=== PATIENT | female | born 1925 | race Caucasian/White ===

== ENCOUNTER 2016-03-25 12:31 | Inpatient (IN) | payer MEDICARE ==
[2016-03-25 13:56] LABS: % BASOPHILS 0.6 % (0.0-2.0); % EOSINOPHILS 0.5 % (0.0-5.0); % LYMPHOCYTES 13.9 % (20.0-50.0); % MONOCYTES 4.2 % (2.0-10.0); % NEUTROPHILS 80.8 % (40.0-80.0); HEMATOCRIT 36.2 % (35.0-45.0); HEMOGLOBIN 12.2 gm/dL (11.7-16.1); MEAN CELL VOLUME 97.1 fl (81-100); MEAN CORPUSCULAR HEMOGLOBIN 32.8 pg (27.0-31.0); MEAN CORPUSCULAR HGB CONC 33.7 pg (28.0-36.0); MEAN PLATELET VOLUME 6.8 fl; NEUTROPHILE ABSOLUTE 6.1 Th/cmm (1.8-8.0); PLATELET COUNT 224 Th/cmm (150-400); RED BLOOD COUNT 3.72 Mil/cmm (3.80-5.20); RED CELL DISTRIBUTION WIDTH 11.9 % (11.5-20.0); WHITE BLOOD COUNT 7.4 Th/cmm (4.8-10.8)
[2016-03-25 14:14] LABS: ALKALINE PHOSPHATASE 68 U/L (34-104); ANION GAP 5.3 (7.0-16.0); BILIRUBIN,TOTAL 0.3 mg/dL (0.3-1.0); BUN - UREA NITROGEN 20 mg/dL (7-25); BUN/CREATININE RATIO 18.2; CALCIUM SERUM 9.6 mg/dL (8.6-10.3); CARBON DIOXIDE 28.5 mEq/L (21.0-31.0); CHLORIDE 107 mEq/L (98-107); CREATININE - SERUM 1.1 mg/dL (0.6-1.2); GLUCOSE 132 mg/dL (70-105); POTASSIUM SERUM 3.8 mEq/L (3.5-5.1); SGOT 17 U/L (13-39); SGPT/ALT 10 U/L (7-52); SODIUM SERUM 137 mEq/L (136-145)
--- NOTE | 2016-03-25 16:04 | Diagnostic Imaging Report ---
CHEST X-RAY: AP view INDICATION: Altered mental status COMPARISON: None FINDINGS: COPD lung changes are seen with no focal consolidation. Right basal pleural thickening is noted. There is evidence of prior median sternotomy. Heart size is borderline prominent. Atherosclerosis is noted. Spinal scoliosis is noted with degenerative changes. IMPRESSION: COPD lung changes with no focal consolidation identified. Evidence of prior median sternotomy. Atherosclerotic vascular disease.
[2016-03-25 16:07] LABS: URINE BILIRUBIN NEGATIVE (NEGATIVE); URINE BLOOD NEGATIVE (NEGATIVE); URINE COLOR YELLOW; URINE GLUCOSE (UA) NEGATIVE (NEGATIVE); URINE KETONE NEGATIVE (NEGATIVE); URINE PROTEIN NEGATIVE (NEGATIVE)
[2016-03-25 16:10] LABS: URINE BACTERIA NONE SEEN /hpf (NONE SEEN); URINE EPITHELIAL CELLS NONE SEEN /lpf (FEW); URINE RBC NONE SEEN /hpf (0-5); URINE WBC NONE SEEN /hpf (0-5)
[2016-03-25] MEDS ORDERED: guaiFENesin 200 MG/10 ML UDC PO PRN (18:47)
[2016-03-25] MEDS: D5-0.45NS 1,000 ML IV SCH (20:10)
--- NOTE | 2016-03-26 09:40 | Consultation ---
AGE: 89. SEX: Female. PHYSICIAN: Dr. Lee. GRINDER LAP: Dr. Johansen. REASON FOR THE CONSULT: Agitation. HISTORY OF PRESENT ILLNESS: The patient is an 89-year-old female who has been agitated and has been in angry and in irritable mood. The patient also has been restless and has been confused and unable to follow any directions. I was called by the application support administrator of the ____ yesterday telling me that the patient is out of control. The patient was transferred to the hospital. The patient currently is still in angry and in irritable mood and she is agitated. The patient also was not able to give me any information about her living arrangements or her family. She also has been restless and in angry mood. The patient is taking currently Remeron at a dose of 7.5 mg everyday and she has been taking Seroquel 25 mg everyday. PAST PSYCHIATRIC HISTORY: The patient has history of psychosis and dementia. SOCIAL HISTORY: The patient is living in a [place] [facility] [place]. MENTAL STATUS EXAM: The patient appears her stated age. Anxious. Irritable mood. Thought processes are circumstantial and tangential with poverty of speech and angry mood. ASSESSMENT: PRIMARY DIAGNOSIS: Unspecified psychosis. TREATMENT PLAN: We will continue to monitor her condition and her medications closely. Also, we will change Seroquel to 12.5 mg twice a day and at bedtime. We will continue Remeron. We will follow up. Thanks to Dr. Lee and we will follow with you will follow up with you. JOB# [id number]
--- NOTE | 2016-03-26 12:46 | Internal Medicine Prog Note ---
Internal Medicine Subjective - Subjective Service Date: 03/26/16 ([id number]) Internal Medicine Objective - Results Result Diagrams: 03/25/16 13:45 03/25/16 13:45 Recent Labs: Laboratory Last Values WBC 7.4 Th/cmm (4.8-10.8) 03/25/16 13:45 RBC 3.72 Mil/cmm (3.80-5.20) L 03/25/16 13:45 Hgb 12.2 gm/dL (11.7-16.1) 03/25/16 13:45 Hct 36.2 % (35.0-45.0) 03/25/16 13:45 MCV 97.1 fl (81-100) 03/25/16 13:45 MCH 32.8 pg (27.0-31.0) H 03/25/16 13:45 MCHC Differential 33.7 pg (28.0-36.0) 03/25/16 13:45 RDW 11.9 % (11.5-20.0) 03/25/16 13:45 Plt Count 224 Th/cmm (150-400) 03/25/16 13:45 MPV 6.8 fl 03/25/16 13:45 Neutrophils % 80.8 % (40.0-80.0) H 03/25/16 13:45 Lymphocytes % 13.9 % (20.0-50.0) L 03/25/16 13:45 Monocytes % 4.2 % (2.0-10.0) 03/25/16 13:45 Eosinophils % 0.5 % (0.0-5.0) 03/25/16 13:45 Basophils % 0.6 % (0.0-2.0) 03/25/16 13:45 Sodium 137 mEq/L (136-145) 03/25/16 13:45 Potassium 3.8 mEq/L (3.5-5.1) 03/25/16 13:45 Chloride 107 mEq/L (98-107) 03/25/16 13:45 Carbon Dioxide 28.5 mEq/L (21.0-31.0) 03/25/16 13:45 Anion Gap 5.3 (7.0-16.0) L 03/25/16 13:45 BUN 20 mg/dL (7-25) 03/25/16 13:45 Creatinine 1.1 mg/dL (0.6-1.2) 03/25/16 13:45 Est GFR ( Amer) TNP 03/25/16 13:45 Est GFR (Non-Af Amer) TNP 03/25/16 13:45 BUN/Creatinine Ratio 18.2 03/25/16 13:45 Glucose 132 mg/dL (70-105) H 03/25/16 13:45 Calcium 9.6 mg/dL (8.6-10.3) 03/25/16 13:45 Total Bilirubin 0.3 mg/dL (0.3-1.0) 03/25/16 13:45 AST 17 U/L (13-39) 03/25/16 13:45 ALT 10 U/L (7-52) 03/25/16 13:45 Alkaline Phosphatase 68 U/L (34-104) 03/25/16 13:45 Troponin I 0.01 ng/mL (0.01-0.05) 03/25/16 13:45 B-Natriuretic Peptide 289.0 pg/mL (5.0-100.0) H 03/25/16 13:45 Total Protein 6.3 gm/dL (6.0-8.3) 03/25/16 13:45 Albumin 3.2 gm/dL (3.7-5.3) L 03/25/16 13:45 Globulin 3.1 gm/dL 03/25/16 13:45 Albumin/Globulin Ratio 1.0 (1.0-1.8) 03/25/16 13:45 TSH 2.82 uIU/ml (0.34-5.60) 03/25/16 13:45 Urine Source CLEAN C 03/25/16 14:25 Urine Color YELLOW 03/25/16 14:25 Urine Clarity CLEAR (CLEAR) 03/25/16 14:25 Urine pH 7.0 03/25/16 14:25 Ur Specific [place] 1.020 (1.005-1.030) 03/25/16 14:25 Urine Protein NEGATIVE mg/dL (NEGATIVE) 03/25/16 14:25 Urine Glucose (UA) NEGATIVE mg/dL (NEGATIVE) 03/25/16 14:25 Urine Ketones NEGATIVE mg/dL (NEGATIVE) 03/25/16 14:25 Urine Blood NEGATIVE (NEGATIVE) 03/25/16 14:25 Urine Nitrate NEGATIVE (NEGATIVE) 03/25/16 14:25 Urine Bilirubin NEGATIVE (NEGATIVE) 03/25/16 14:25 Urine Urobilinogen 1.0 E.U./dL (0.2 - 1.0) 03/25/16 14:25 Ur Leukocyte Esterase NEGATIVE (NEGATIVE) 03/25/16 14:25 Urine RBC NONE SEEN /hpf (0-5) 03/25/16 14:25 Urine WBC NONE SEEN /hpf (0-5) 03/25/16 14:25 Ur Epithelial Cells NONE SEEN /lpf (FEW) 03/25/16 14:25 Urine Bacteria NONE SEEN /hpf (NONE SEEN) 03/25/16 14:25 - Physical Exam Vitals and I&O: Vital Signs Temp 97.2 F 03/26/16 12:25 Pulse 70 03/26/16 12:25 Resp 18 03/26/16 12:25 BP 136/73 03/26/16 12:25 Pulse Ox 96 03/26/16 12:25 Intake & Output 03/25/16 03/26/16 03/26/16 18:59 06:59 18:59 Intake Total 300 Balance 300 Intake: Oral 300 Other: # Voids 2 # Bowel Movements 0 Stool Characteristics Formed Formed Active Medications: Current Medications Acetaminophen (Tylenol) 650 mg PO Q4HR PRN PRN Reason: Pain or Fever >101 Stop: 05/24/16 18:46 Albuterol Sulfate (Albuterol 2.5mg/3ml Neb Ud) 2.5 mg IH Q2HR PRN PRN Reason: Shortness of Breath or Wheeze Stop: 05/24/16 18:46 Aspirin (Ecotrin) 81 mg PO DAILY REPLACED BY [facility] Stop: 05/25/16 08:59 Last Admin: 03/26/16 09:54 Dose: 81 mg Donepezil HCl (Aricept) 10 mg PO DAILY REPLACED BY [facility] Stop: 05/25/16 08:59 Last Admin: 03/26/16 09:53 Dose: 10 mg Guaifenesin (Robitussin) 200 mg PO Q4HR PRN PRN Reason: Cough or Congestion Stop: 05/24/16 18:46 Dextrose/Sodium Chloride (D5-0.45ns) 1,000 mls @ 60 mls/hr IV .[id number] REPLACED BY [facility] Stop: 05/24/16 18:59 Last Admin: 03/25/16 20:10 Dose: 60 mls/hr Ipratropium [place] (Atrovent Neb 0.5mg/2.5ml) 0.5 mg IH Q2HR PRN PRN Reason: Shortness of Breath or Wheeze Stop: 05/24/16 18:46 Lorazepam (Ativan) 0.5 mg PO Q4HR PRN; Protocol PRN Reason: Agitation Stop: 05/24/16 18:43 Last Admin: 03/25/16 20:19 Dose: 0.5 mg Metoprolol Succinate (Toprol Xl) 50 mg PO DAILY REPLACED BY [facility] Stop: 05/25/16 08:59 Last Admin: 03/26/16 09:54 Dose: 50 mg Mirtazapine (Remeron) 15 mg PO HS [facility] PRN Reason: Protocol Stop: 05/24/16 20:59 Last Admin: 03/25/16 20:10 Dose: 15 mg Ondansetron HCl (Zofran) 4 mg IV Q8H PRN PRN Reason: Nausea / Vomiting Stop: 05/24/16 18:46 Quetiapine Fumarate (Seroquel) 12.5 mg PO BID [facility] PRN Reason: Protocol Stop: 05/25/16 08:59 Last Admin: 03/26/16 09:54 Dose: 12.5 mg Quetiapine Fumarate (Seroquel) 12.5 mg PO HS [facility] PRN Reason: Protocol Stop: 05/25/16 20:59 Internal Medicine Assmt/Plan - Assessment Assessment: aloc htn dementia
--- NOTE | 2016-03-26 14:25 | History & Physical ---
CHIEF COMPLAINT: ALOC. HISTORY OF PRESENT ILLNESS: This is an 89-year-old female who is a resident of [facility], who was brought here to [facility] for ALOC. Upon examination, the patient is a very poor historian, unable to give any information. PAST MEDICAL HISTORY: Hypertension, dementia. SURGICAL HISTORY: CABG. FAMILY HISTORY: Noncontributory. ALLERGIES: No drug allergies. REVIEW OF SYSTEMS: Unable to obtain, patient is unable to answer questions. PHYSICAL EXAMINATION: GENERAL: The patient is an elderly female, awake, confused, in no apparent distress. VITAL SIGNS: Temperature ____, heart rate 70, blood pressure 136/73, respirations 18, O2 96%. HEENT: Head; normocephalic, atraumatic. NECK: Supple. No mass. LUNGS: Clear bilaterally upon auscultation. HEART: Regular rhythm, no murmurs, gallops. SKIN: Intact, warm and dry to touch. ABDOMEN: Soft, nontender, nondistended. Positive bowel sounds in all 4 quadrants. LABORATORY DATA: WBC 7.4, H and H and 12.2 and 36.2, platelets 224. Sodium 137, potassium 3.8, chloride 107, carbon dioxide 28.5, BUN 20, creatinine 1.1. BNP of 289. The patient had a urinalysis done, negative for any UTI. The patient had a chest x-ray done and the impression is, COPD, lung changes with no focal consolidation identified. ASSESSMENT: 1. Altered level of consciousness. 2. Hypertension. 3. Dementia. PLAN: The patient will be admitted to the med/surg unit. The patient will have a consultation with Dr. Johansen. IV fluids be given for hydration. Psych medications will be monitored. We will continue to monitor the patient. JOB# [id number]
[2016-03-26 16:34] LABS: % BASOPHILS 0.8 % (0.0-2.0); % EOSINOPHILS 2.1 % (0.0-5.0); % LYMPHOCYTES 15.2 % (20.0-50.0); % MONOCYTES 6.7 % (2.0-10.0); % NEUTROPHILS 75.2 % (40.0-80.0); HEMATOCRIT 37.1 % (35.0-45.0); HEMOGLOBIN 12.6 gm/dL (11.7-16.1); MEAN CELL VOLUME 96.1 fl (81-100); MEAN CORPUSCULAR HEMOGLOBIN 32.7 pg (27.0-31.0); MEAN CORPUSCULAR HGB CONC 34.1 pg (28.0-36.0); NEUTROPHILE ABSOLUTE 4.9 Th/cmm (1.8-8.0); PLATELET COUNT 209 Th/cmm (150-400); RED BLOOD COUNT 3.86 Mil/cmm (3.80-5.20); RED CELL DISTRIBUTION WIDTH 11.8 % (11.5-20.0); WHITE BLOOD COUNT 6.5 Th/cmm (4.8-10.8)
[2016-03-26 16:48] LABS: ANION GAP 6.2 (7.0-16.0); BUN - UREA NITROGEN 20 mg/dL (7-25); CALCIUM SERUM 9.1 mg/dL (8.6-10.3); CHLORIDE 105 mEq/L (98-107); CREATININE - SERUM 0.8 mg/dL (0.6-1.2); GLUCOSE 113 mg/dL (70-105); MAGNESIUM 2.2 mg/dL (1.9-2.7); POTASSIUM SERUM 4.2 mEq/L (3.5-5.1); SODIUM SERUM 134 mEq/L (136-145)
[2016-03-26] MEDS: D5-0.45NS 1,000 ML IV SCH (16:52)
[2016-03-27 06:56] LABS: % BASOPHILS 0.9 % (0.0-2.0); % EOSINOPHILS 2.5 % (0.0-5.0); % LYMPHOCYTES 19.7 % (20.0-50.0); % MONOCYTES 5.7 % (2.0-10.0); % NEUTROPHILS 71.2 % (40.0-80.0); HEMATOCRIT 39.3 % (35.0-45.0); HEMOGLOBIN 13.3 gm/dL (11.7-16.1); MEAN CELL VOLUME 95.4 fl (81-100); MEAN CORPUSCULAR HEMOGLOBIN 32.2 pg (27.0-31.0); MEAN CORPUSCULAR HGB CONC 33.7 pg (28.0-36.0); MEAN PLATELET VOLUME 7.1 fl; NEUTROPHILE ABSOLUTE 4.7 Th/cmm (1.8-8.0); PLATELET COUNT 228 Th/cmm (150-400); RED BLOOD COUNT 4.12 Mil/cmm (3.80-5.20); RED CELL DISTRIBUTION WIDTH 12.1 % (11.5-20.0); WHITE BLOOD COUNT 6.7 Th/cmm (4.8-10.8)
[2016-03-27 07:02] LABS: ANION GAP 6.1 (7.0-16.0); BUN - UREA NITROGEN 18 mg/dL (7-25); CALCIUM SERUM 9.2 mg/dL (8.6-10.3); CARBON DIOXIDE 27.8 mEq/L (21.0-31.0); CHLORIDE 104 mEq/L (98-107); CREATININE - SERUM 0.9 mg/dL (0.6-1.2); GLUCOSE 117 mg/dL (70-105); POTASSIUM SERUM 3.9 mEq/L (3.5-5.1); SODIUM SERUM 134 mEq/L (136-145)
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
--- NOTE | 2016-03-27 14:20 | Internal Medicine Prog Note ---
Internal Medicine Subjective - Subjective Patient seen and examined:: with staff, chart reviewed Patient is:: asleep, non-verbal Patient Complaints of:: congestion Per staff patient is:: no adverse event, noncompliant, confused Internal Medicine Objective - Results Result Diagrams: 03/27/16 06:27 03/27/16 06:27 Recent Labs: Laboratory Last Values WBC 6.7 Th/cmm (4.8-10.8) 03/27/16 06:27 RBC 4.12 Mil/cmm (3.80-5.20) 03/27/16 06:27 Hgb 13.3 gm/dL (11.7-16.1) 03/27/16 06:27 Hct 39.3 % (35.0-45.0) 03/27/16 06:27 MCV 95.4 fl (81-100) 03/27/16 06:27 MCH 32.2 pg (27.0-31.0) H 03/27/16 06:27 MCHC Differential 33.7 pg (28.0-36.0) 03/27/16 06:27 RDW 12.1 % (11.5-20.0) 03/27/16 06:27 Plt Count 228 Th/cmm (150-400) 03/27/16 06:27 MPV 7.1 fl 03/27/16 06:27 Neutrophils % 71.2 % (40.0-80.0) 03/27/16 06:27 Lymphocytes % 19.7 % (20.0-50.0) L 03/27/16 06:27 Monocytes % 5.7 % (2.0-10.0) 03/27/16 06:27 Eosinophils % 2.5 % (0.0-5.0) 03/27/16 06:27 Basophils % 0.9 % (0.0-2.0) 03/27/16 06:27 Sodium 134 mEq/L (136-145) L 03/27/16 06:27 Potassium 3.9 mEq/L (3.5-5.1) 03/27/16 06:27 Chloride 104 mEq/L (98-107) 03/27/16 06:27 Carbon Dioxide 27.8 mEq/L (21.0-31.0) 03/27/16 06:27 Anion Gap 6.1 (7.0-16.0) L 03/27/16 06:27 BUN 18 mg/dL (7-25) 03/27/16 06:27 Creatinine 0.9 mg/dL (0.6-1.2) 03/27/16 06:27 Est GFR ( Amer) TNP 03/27/16 06:27 Est GFR (Non-Af Amer) TNP 03/27/16 06:27 BUN/Creatinine Ratio 20.0 03/27/16 06:27 Glucose 117 mg/dL (70-105) H 03/27/16 06:27 Calcium 9.2 mg/dL (8.6-10.3) 03/27/16 06:27 Magnesium 2.2 mg/dL (1.9-2.7) 03/26/16 16:03 Total Bilirubin 0.3 mg/dL (0.3-1.0) 03/25/16 13:45 AST 17 U/L (13-39) 03/25/16 13:45 ALT 10 U/L (7-52) 03/25/16 13:45 Alkaline Phosphatase 68 U/L (34-104) 03/25/16 13:45 Ammonia 31 umol/L (16-53) 03/26/16 16:03 Troponin I 0.01 ng/mL (0.01-0.05) 03/25/16 13:45 B-Natriuretic Peptide 289.0 pg/mL (5.0-100.0) H 03/25/16 13:45 Total Protein 6.3 gm/dL (6.0-8.3) 03/25/16 13:45 Albumin 3.2 gm/dL (3.7-5.3) L 03/25/16 13:45 Globulin 3.1 gm/dL 03/25/16 13:45 Albumin/Globulin Ratio 1.0 (1.0-1.8) 03/25/16 13:45 TSH 2.82 uIU/ml (0.34-5.60) 03/25/16 13:45 Urine Source CLEAN C 03/25/16 14:25 Urine Color YELLOW 03/25/16 14:25 Urine Clarity CLEAR (CLEAR) 03/25/16 14:25 Urine pH 7.0 03/25/16 14:25 Ur Specific [place] 1.020 (1.005-1.030) 03/25/16 14:25 Urine Protein NEGATIVE mg/dL (NEGATIVE) 03/25/16 14:25 Urine Glucose (UA) NEGATIVE mg/dL (NEGATIVE) 03/25/16 14:25 Urine Ketones NEGATIVE mg/dL (NEGATIVE) 03/25/16 14:25 Urine Blood NEGATIVE (NEGATIVE) 03/25/16 14:25 Urine Nitrate NEGATIVE (NEGATIVE) 03/25/16 14:25 Urine Bilirubin NEGATIVE (NEGATIVE) 03/25/16 14:25 Urine Urobilinogen 1.0 E.U./dL (0.2 - 1.0) 03/25/16 14:25 Ur Leukocyte Esterase NEGATIVE (NEGATIVE) 03/25/16 14:25 Urine RBC NONE SEEN /hpf (0-5) 03/25/16 14:25 Urine WBC NONE SEEN /hpf (0-5) 03/25/16 14:25 Ur Epithelial Cells NONE SEEN /lpf (FEW) 03/25/16 14:25 Urine Bacteria NONE SEEN /hpf (NONE SEEN) 03/25/16 14:25 RPR NONREACTIVE (NONREACTIVE) 03/25/16 13:45 - Physical Exam Vitals and I&O: Vital Signs Temp 98.0 F 03/27/16 12:00 Pulse 72 03/27/16 12:00 Resp 18 03/27/16 12:00 BP 106/56 03/27/16 12:00 Pulse Ox 98 03/27/16 12:00 Intake & Output 03/26/16 03/27/16 03/27/16 18:59 06:59 18:59 Intake Total 1000 200 Balance 1000 200 Intake: Intake, IV Amount 1000 D5-0.45NS 1,000 ml @ 60 1000 mls/hr IV .[id number] [facility] Rx #:[id number] Oral 200 Other: Stool Characteristics Soft Soft Formed Formed Active Medications: Current Medications Acetaminophen (Tylenol) 650 mg PO Q4HR PRN PRN Reason: Pain or Fever >101 Stop: 05/24/16 18:46 Albuterol Sulfate (Albuterol 2.5mg/3ml Neb Ud) 2.5 mg IH Q2HR PRN PRN Reason: Shortness of Breath or Wheeze Stop: 05/24/16 18:46 Aspirin (Ecotrin) 81 mg PO DAILY [facility] Stop: 05/25/16 08:59 Last Admin: 03/27/16 09:19 Dose: 81 mg Donepezil HCl (Aricept) 10 mg PO DAILY [facility] Stop: 05/25/16 08:59 Last Admin: 03/27/16 09:19 Dose: 10 mg Guaifenesin (Robitussin) 200 mg PO Q4HR PRN PRN Reason: Cough or Congestion Stop: 05/24/16 18:46 Dextrose/Sodium Chloride (D5-0.45ns) 1,000 mls @ 60 mls/hr IV .[id number] [facility] Stop: 05/24/16 18:59 Last Admin: 03/26/16 16:52 Dose: 60 mls/hr Ipratropium [place] (Atrovent Neb 0.5mg/2.5ml) 0.5 mg IH Q2HR PRN PRN Reason: Shortness of Breath or Wheeze Stop: 05/24/16 18:46 Lorazepam (Ativan) 0.5 mg PO Q4HR PRN; Protocol PRN Reason: Agitation Stop: 05/24/16 18:43 Last Admin: 03/25/16 20:19 Dose: 0.5 mg Metoprolol Succinate (Toprol Xl) 50 mg PO DAILY [facility] Stop: 05/25/16 08:59 Last Admin: 03/27/16 09:20 Dose: 50 mg Mirtazapine (Remeron) 15 mg PO HS [facility] PRN Reason: Protocol Stop: 05/24/16 20:59 Last Admin: 03/26/16 22:00 Dose: Not Given Ondansetron HCl (Zofran) 4 mg IV Q8H PRN PRN Reason: Nausea / Vomiting Stop: 05/24/16 18:46 Quetiapine Fumarate (Seroquel) 12.5 mg PO BID [facility] PRN Reason: Protocol Stop: 05/25/16 08:59 Last Admin: 03/27/16 09:19 Dose: 12.5 mg Quetiapine Fumarate (Seroquel) 12.5 mg PO HS [facility] PRN Reason: Protocol Stop: 05/25/16 20:59 Last Admin: 03/26/16 22:00 Dose: Not Given General: lethargic, demented HEENT: NC/AT, PERRLA Neck: Supple, No JVD Lungs: CTAB Cardiovascular: RRR, Normal S1, Normal S2 Abdomen: soft non-tender, positive bowel sound Extremities: excoriation, contracture Neurological: no change Internal Medicine Assmt/Plan - Assessment Assessment: aloc htn dementia - Plan Plan: willl adjust bp meds ivf seen by psych jonny rn dw daughter
--- NOTE | 2016-03-27 15:41 | Diagnostic Imaging Report ---
Ultrasound soft tissues of neck HISTORY: Mass. Sonographic sector images were obtained about the left neck area. There is an approximate 0.5 x 0.3 x 0.7 cm hypoechoic density adjacent to the carotid bulb on the left side. Appearance is nonspecific. A CT scan with intravenous contrast recommended for further assessment and evaluation. IMPRESSION: 1. Nonspecific subcentimeter nodular density within the soft tissues adjacent to the common carotid artery on the left side. A CT scan with intravenous contrast would provide additional characterization and assessment.
[2016-03-27 16:16] LABS: FOLIC ACID 8.2 ng/mL (>3.0)
[2016-03-27] MEDS: D5-0.45NS 1,000 ML IV SCH (18:38)
--- NOTE | 2016-03-28 01:53 | Admit Criteria Form ---
Admit Criteria Forms - Admit Criteria Diagnosis: MENTAL STATUS CHANGE Clinical Indications for Inpatient Care (Place 'X' for any and all applicable criteria): Ongoing inpatient care may be needed for ANY ONE of the following(1)(2)(3)(5)(6) : [X ]I. Suspected serious etiology (eg, medical disorder, FI[employer] event) of mental status change [ ]II. Danger to self or others not manageable at lower level of care [ ]III. Grave disability (eg, inability to perform self care necessary at lower level of care) [ ]IV. Agitation or inappropriate behavior interfering with care for primary condition (eg, attempting to discontinue lines or drains prematurely, unable to cooperate with respiratory care) [ ]V. Delirium [A] [D][E] as described by ANY ONE of the following(26): [ ]a) Delirium due to alcohol or sedative [F] withdrawal [ ]b) Delirium of uncertain etiology that has not responded to appropriate empiric treatment [ ]c) Delirium that prevents performance of a life-sustaining function (eg, feeding or hydrating oneself) [ ]. General contraindications and/or Inappropriate clinical situations for Observational Care in patients with Mental Status Change, when ANY ONE of the following is required: [ ]a) Prediction of prolongation of LOS based on ANY ONE of the following may be considered as a contraindication for observational care 2, 3, 4, 5, 6, 7, 8, 9, 10, 11 [ ]i) Age > 65 yrs. [ ]ii) Patient arriving by ambulance [ ]iii) Patient with high acuity [ ]iv) Patient requiring vital sign monitoring [ ]v) Patient on IV medication [ ]b) Systolic blood pressures 180mmHg 3,12 [ ]c) Patient with altered mental status including delirium and other alteration of consciousness, (3) [ ]d) Patient whose discharge disposition will be to a assisted home or rehabilitation home should not be managed in Emergency Department Observation Unit. CMS rule requires 3 days hospital stay before such placement.3,13 [ ]e) Patient with failure to thrive due to broad array of etiologies 3,16,17 [ ]f) Inability to ambulate 3,14 Extended stay beyond goal length of stay for the primary condition may be needed until ALL of the following are present(3)(5): [ ]a) Underlying medical etiology of mental status change is absent, or has been established and adequately treated [ ]b) Danger to self or others is absent or manageable at lower level of care. [ ]c) Behavior crisis management, including physical or chemical restraints, is not required or available at lower level of car [ ]d) Substance or alcohol withdrawal is absent or manageable at lower level of care. [ ]e) Behavioral symptoms (eg, agitation, somnolence, inappropriate behavior) are absent, or are manageable at lower level of care. The original [facility] content created by [facility] has been revised. The portions of the content which have been revised are identified through the use of italic text or in bold, and [facility] has neither reviewed nor approved the modified material. All other unmodified content is copyright [facility]. Please see references footnoted in the original [facility] edition 2016 Admit Criteria Met?: Yes
[2016-03-28] MEDS: D5-0.45NS 1,000 ML IV SCH (09:53)
--- NOTE | 2016-03-28 12:30 | Internal Medicine Prog Note ---
Internal Medicine Subjective - Subjective Service Date: 03/28/16 Patient seen and examined:: with staff Patient is:: awake, other (agitated) Per staff patient is:: no adverse event Internal Medicine Objective - Results Result Diagrams: 03/27/16 06:27 03/27/16 06:27 Recent Labs: Laboratory Last Values WBC 6.7 Th/cmm (4.8-10.8) 03/27/16 06:27 RBC 4.12 Mil/cmm (3.80-5.20) 03/27/16 06:27 Hgb 13.3 gm/dL (11.7-16.1) 03/27/16 06:27 Hct 39.3 % (35.0-45.0) 03/27/16 06:27 MCV 95.4 fl (81-100) 03/27/16 06:27 MCH 32.2 pg (27.0-31.0) H 03/27/16 06:27 MCHC Differential 33.7 pg (28.0-36.0) 03/27/16 06:27 RDW 12.1 % (11.5-20.0) 03/27/16 06:27 Plt Count 228 Th/cmm (150-400) 03/27/16 06:27 MPV 7.1 fl 03/27/16 06:27 Neutrophils % 71.2 % (40.0-80.0) 03/27/16 06:27 Lymphocytes % 19.7 % (20.0-50.0) L 03/27/16 06:27 Monocytes % 5.7 % (2.0-10.0) 03/27/16 06:27 Eosinophils % 2.5 % (0.0-5.0) 03/27/16 06:27 Basophils % 0.9 % (0.0-2.0) 03/27/16 06:27 Sodium 134 mEq/L (136-145) L 03/27/16 06:27 Potassium 3.9 mEq/L (3.5-5.1) 03/27/16 06:27 Chloride 104 mEq/L (98-107) 03/27/16 06:27 Carbon Dioxide 27.8 mEq/L (21.0-31.0) 03/27/16 06:27 Anion Gap 6.1 (7.0-16.0) L 03/27/16 06:27 BUN 18 mg/dL (7-25) 03/27/16 06:27 Creatinine 0.9 mg/dL (0.6-1.2) 03/27/16 06:27 Est GFR ( Amer) TNP 03/27/16 06:27 Est GFR (Non-Af Amer) TNP 03/27/16 06:27 BUN/Creatinine Ratio 20.0 03/27/16 06:27 Glucose 117 mg/dL (70-105) H 03/27/16 06:27 Hemoglobin A1c % 5.9 % (4.0-6.0) 03/26/16 16:03 Calcium 9.2 mg/dL (8.6-10.3) 03/27/16 06:27 Magnesium 2.2 mg/dL (1.9-2.7) 03/26/16 16:03 Total Bilirubin 0.3 mg/dL (0.3-1.0) 03/25/16 13:45 AST 17 U/L (13-39) 03/25/16 13:45 ALT 10 U/L (7-52) 03/25/16 13:45 Alkaline Phosphatase 68 U/L (34-104) 03/25/16 13:45 Ammonia 31 umol/L (16-53) 03/26/16 16:03 Troponin I 0.01 ng/mL (0.01-0.05) 03/25/16 13:45 B-Natriuretic Peptide 289.0 pg/mL (5.0-100.0) H 03/25/16 13:45 Total Protein 6.3 gm/dL (6.0-8.3) 03/25/16 13:45 Albumin 3.2 gm/dL (3.7-5.3) L 03/25/16 13:45 Globulin 3.1 gm/dL 03/25/16 13:45 Albumin/Globulin Ratio 1.0 (1.0-1.8) 03/25/16 13:45 Vitamin B12 1496 pg/mL (211-946) H 03/26/16 16:03 Folic Acid 8.2 ng/mL (>3.0) 03/26/16 16:03 TSH 2.82 uIU/ml (0.34-5.60) 03/25/16 13:45 Urine Source CLEAN C 03/25/16 14:25 Urine Color YELLOW 03/25/16 14:25 Urine Clarity CLEAR (CLEAR) 03/25/16 14:25 Urine pH 7.0 03/25/16 14:25 Ur Specific [place] 1.020 (1.005-1.030) 03/25/16 14:25 Urine Protein NEGATIVE mg/dL (NEGATIVE) 03/25/16 14:25 Urine Glucose (UA) NEGATIVE mg/dL (NEGATIVE) 03/25/16 14:25 Urine Ketones NEGATIVE mg/dL (NEGATIVE) 03/25/16 14:25 Urine Blood NEGATIVE (NEGATIVE) 03/25/16 14:25 Urine Nitrate NEGATIVE (NEGATIVE) 03/25/16 14:25 Urine Bilirubin NEGATIVE (NEGATIVE) 03/25/16 14:25 Urine Urobilinogen 1.0 E.U./dL (0.2 - 1.0) 03/25/16 14:25 Ur Leukocyte Esterase NEGATIVE (NEGATIVE) 03/25/16 14:25 Urine RBC NONE SEEN /hpf (0-5) 03/25/16 14:25 Urine WBC NONE SEEN /hpf (0-5) 03/25/16 14:25 Ur Epithelial Cells NONE SEEN /lpf (FEW) 03/25/16 14:25 Urine Bacteria NONE SEEN /hpf (NONE SEEN) 03/25/16 14:25 RPR NONREACTIVE (NONREACTIVE) 03/25/16 13:45 - Physical Exam Vitals and I&O: Vital Signs Temp 98.1 F 03/28/16 12:00 Pulse 84 03/28/16 12:00 Resp 19 03/28/16 12:00 BP 146/73 03/28/16 12:00 Pulse Ox 93 03/28/16 12:00 Intake & Output 03/27/16 03/28/16 03/28/16 18:59 06:59 18:59 Intake Total 1850 200 Balance 1850 200 Intake: Intake, IV Amount 1000 D5-0.45NS 1,000 ml @ 60 1000 mls/hr IV .[id number] [facility] Rx #:[id number] Oral 850 200 Other: # Voids 2 3 # Bowel Movements 0 1 Stool Characteristics Soft Soft Active Medications: Current Medications Acetaminophen (Tylenol) 650 mg PO Q4HR PRN PRN Reason: Pain or Fever >101 Stop: 05/24/16 18:46 Albuterol Sulfate (Albuterol 2.5mg/3ml Neb Ud) 2.5 mg IH Q2HR PRN PRN Reason: Shortness of Breath or Wheeze Stop: 05/24/16 18:46 Aspirin (Ecotrin) 81 mg PO DAILY [facility] Stop: 05/25/16 08:59 Last Admin: 03/28/16 09:07 Dose: 81 mg Donepezil HCl (Aricept) 10 mg PO DAILY [facility] Stop: 05/25/16 08:59 Last Admin: 03/28/16 09:07 Dose: 10 mg Guaifenesin (Robitussin) 200 mg PO Q4HR PRN PRN Reason: Cough or Congestion Stop: 05/24/16 18:46 Dextrose/Sodium Chloride (D5-0.45ns) 1,000 mls @ 60 mls/hr IV .[id number] [facility] Stop: 05/24/16 18:59 Last Admin: 03/28/16 09:53 Dose: 60 mls/hr Ipratropium [place] (Atrovent Neb 0.5mg/2.5ml) 0.5 mg IH Q2HR PRN PRN Reason: Shortness of Breath or Wheeze Stop: 05/24/16 18:46 Lorazepam (Ativan) 0.5 mg PO Q4HR PRN; Protocol PRN Reason: Agitation Stop: 05/24/16 18:43 Last Admin: 03/28/16 01:14 Dose: 0.5 mg Metoprolol Succinate (Toprol Xl) 50 mg PO DAILY [facility] Stop: 05/25/16 08:59 Last Admin: 03/28/16 09:07 Dose: 50 mg Mirtazapine (Remeron) 15 mg PO HS [facility] PRN Reason: Protocol Stop: 05/24/16 20:59 Last Admin: 03/27/16 22:01 Dose: 15 mg Ondansetron HCl (Zofran) 4 mg IV Q8H PRN PRN Reason: Nausea / Vomiting Stop: 05/24/16 18:46 Quetiapine Fumarate (Seroquel) 12.5 mg PO BID [facility] PRN Reason: Protocol Stop: 05/25/16 08:59 Last Admin: 03/28/16 09:07 Dose: 12.5 mg Quetiapine Fumarate (Seroquel) 12.5 mg PO HS [facility] PRN Reason: Protocol Stop: 05/25/16 20:59 Last Admin: 03/27/16 22:01 Dose: 12.5 mg General: alert HEENT: NC/AT, PERRLA Neck: Supple Lungs: CTAB Cardiovascular: RRR, Normal S1, Normal S2, without murmur Abdomen: soft non-tender, non-distended Internal Medicine Assmt/Plan - Assessment Assessment: aloc htn dementia - Plan Plan: monitor BP ivf for hydration cbc/bmp in am dc planning
[2016-03-28] MEDS ORDERED: IOHEXOL 300MG/ML 100 ML VIAL IVP ONE (12:51)
[2016-03-29] MEDS: D5-0.45NS 1,000 ML IV SCH (09:09)
[2016-03-29 09:45] LABS: % BASOPHILS 0.8 % (0.0-2.0); % EOSINOPHILS 0.4 % (0.0-5.0); % LYMPHOCYTES 12.6 % (20.0-50.0); % MONOCYTES 13.5 % (2.0-10.0); % NEUTROPHILS 72.7 % (40.0-80.0); HEMATOCRIT 38.3 % (35.0-45.0); HEMOGLOBIN 12.9 gm/dL (11.7-16.1); MEAN CELL VOLUME 96.2 fl (81-100); MEAN CORPUSCULAR HEMOGLOBIN 32.4 pg (27.0-31.0); MEAN CORPUSCULAR HGB CONC 33.6 pg (28.0-36.0); MEAN PLATELET VOLUME 7.2 fl; NEUTROPHILE ABSOLUTE 4.5 Th/cmm (1.8-8.0); PLATELET COUNT 199 Th/cmm (150-400); RED BLOOD COUNT 3.98 Mil/cmm (3.80-5.20); RED CELL DISTRIBUTION WIDTH 12.2 % (11.5-20.0); WHITE BLOOD COUNT 6.3 Th/cmm (4.8-10.8)
[2016-03-29 09:54] LABS: ANION GAP 9.4 (7.0-16.0); BUN - UREA NITROGEN 23 mg/dL (7-25); BUN/CREATININE RATIO 20.9; CALCIUM SERUM 8.9 mg/dL (8.6-10.3); CARBON DIOXIDE 26.5 mEq/L (21.0-31.0); CHLORIDE 100 mEq/L (98-107); CREATININE - SERUM 1.1 mg/dL (0.6-1.2); GLUCOSE 116 mg/dL (70-105); POTASSIUM SERUM 3.9 mEq/L (3.5-5.1); SODIUM SERUM 132 mEq/L (136-145)
--- NOTE | 2016-03-29 11:43 | Internal Medicine Prog Note ---
Internal Medicine Subjective - Subjective Patient seen and examined:: with staff, chart reviewed, other (daughter at bedside, upset, not listening to rn, says shes being lied to) Patient is:: awake, verbal, interactive Per staff patient is:: no adverse event, no episodes of fall, poor appetite, poor oral intake, agitated, noncompliant, confused, other (refused to eat w nursing assistance) Internal Medicine Objective - Results Result Diagrams: 03/29/16 09:03 03/29/16 09:03 Recent Labs: Laboratory Last Values WBC 6.3 Th/cmm (4.8-10.8) 03/29/16 09:03 RBC 3.98 Mil/cmm (3.80-5.20) 03/29/16 09:03 Hgb 12.9 gm/dL (11.7-16.1) 03/29/16 09:03 Hct 38.3 % (35.0-45.0) 03/29/16 09:03 MCV 96.2 fl (81-100) 03/29/16 09:03 MCH 32.4 pg (27.0-31.0) H 03/29/16 09:03 MCHC Differential 33.6 pg (28.0-36.0) 03/29/16 09:03 RDW 12.2 % (11.5-20.0) 03/29/16 09:03 Plt Count 199 Th/cmm (150-400) 03/29/16 09:03 MPV 7.2 fl 03/29/16 09:03 Neutrophils % 72.7 % (40.0-80.0) 03/29/16 09:03 Lymphocytes % 12.6 % (20.0-50.0) L 03/29/16 09:03 Monocytes % 13.5 % (2.0-10.0) H 03/29/16 09:03 Eosinophils % 0.4 % (0.0-5.0) 03/29/16 09:03 Basophils % 0.8 % (0.0-2.0) 03/29/16 09:03 Sodium 132 mEq/L (136-145) L 03/29/16 09:03 Potassium 3.9 mEq/L (3.5-5.1) 03/29/16 09:03 Chloride 100 mEq/L (98-107) 03/29/16 09:03 Carbon Dioxide 26.5 mEq/L (21.0-31.0) 03/29/16 09:03 Anion Gap 9.4 (7.0-16.0) 03/29/16 09:03 BUN 23 mg/dL (7-25) 03/29/16 09:03 Creatinine 1.1 mg/dL (0.6-1.2) 03/29/16 09:03 Est GFR ( Amer) TNP 03/29/16 09:03 Est GFR (Non-Af Amer) TNP 03/29/16 09:03 BUN/Creatinine Ratio 20.9 03/29/16 09:03 Glucose 116 mg/dL (70-105) H 03/29/16 09:03 Hemoglobin A1c % 5.9 % (4.0-6.0) 03/26/16 16:03 Calcium 8.9 mg/dL (8.6-10.3) 03/29/16 09:03 Magnesium 2.2 mg/dL (1.9-2.7) 03/26/16 16:03 Total Bilirubin 0.3 mg/dL (0.3-1.0) 03/25/16 13:45 AST 17 U/L (13-39) 03/25/16 13:45 ALT 10 U/L (7-52) 03/25/16 13:45 Alkaline Phosphatase 68 U/L (34-104) 03/25/16 13:45 Ammonia 31 umol/L (16-53) 03/26/16 16:03 Troponin I 0.01 ng/mL (0.01-0.05) 03/25/16 13:45 B-Natriuretic Peptide 289.0 pg/mL (5.0-100.0) H 03/25/16 13:45 Total Protein 6.3 gm/dL (6.0-8.3) 03/25/16 13:45 Albumin 3.2 gm/dL (3.7-5.3) L 03/25/16 13:45 Globulin 3.1 gm/dL 03/25/16 13:45 Albumin/Globulin Ratio 1.0 (1.0-1.8) 03/25/16 13:45 Vitamin B12 1496 pg/mL (211-946) H 03/26/16 16:03 Folic Acid 8.2 ng/mL (>3.0) 03/26/16 16:03 TSH 2.82 uIU/ml (0.34-5.60) 03/25/16 13:45 Urine Source CLEAN C 03/25/16 14:25 Urine Color YELLOW 03/25/16 14:25 Urine Clarity CLEAR (CLEAR) 03/25/16 14:25 Urine pH 7.0 03/25/16 14:25 Ur Specific [place] 1.020 (1.005-1.030) 03/25/16 14:25 Urine Protein NEGATIVE mg/dL (NEGATIVE) 03/25/16 14:25 Urine Glucose (UA) NEGATIVE mg/dL (NEGATIVE) 03/25/16 14:25 Urine Ketones NEGATIVE mg/dL (NEGATIVE) 03/25/16 14:25 Urine Blood NEGATIVE (NEGATIVE) 03/25/16 14:25 Urine Nitrate NEGATIVE (NEGATIVE) 03/25/16 14:25 Urine Bilirubin NEGATIVE (NEGATIVE) 03/25/16 14:25 Urine Urobilinogen 1.0 E.U./dL (0.2 - 1.0) 03/25/16 14:25 Ur Leukocyte Esterase NEGATIVE (NEGATIVE) 03/25/16 14:25 Urine RBC NONE SEEN /hpf (0-5) 03/25/16 14:25 Urine WBC NONE SEEN /hpf (0-5) 03/25/16 14:25 Ur Epithelial Cells NONE SEEN /lpf (FEW) 03/25/16 14:25 Urine Bacteria NONE SEEN /hpf (NONE SEEN) 03/25/16 14:25 RPR NONREACTIVE (NONREACTIVE) 03/25/16 13:45 - Physical Exam Vitals and I&O: Vital Signs Temp 97.7 F 03/29/16 07:52 Pulse 83 03/29/16 09:11 Resp 18 03/29/16 08:00 BP 160/86 03/29/16 09:11 Pulse Ox 93 03/29/16 07:52 Intake & Output 03/28/16 03/29/16 03/29/16 18:59 06:59 18:59 Intake Total 1050 Balance 1050 Intake: Intake, IV Amount 1000 D5-0.45NS 1,000 ml @ 60 1000 mls/hr IV .[id number] [facility] Rx #:[id number] Oral 50 Other: # Voids 2 Stool Characteristics Soft Soft Soft Active Medications: Current Medications Acetaminophen (Tylenol) 650 mg PO Q4HR PRN PRN Reason: Pain or Fever >101 Stop: 05/24/16 18:46 Albuterol Sulfate (Albuterol 2.5mg/3ml Neb Ud) 2.5 mg IH Q2HR PRN PRN Reason: Shortness of Breath or Wheeze Stop: 05/24/16 18:46 Aspirin (Ecotrin) 81 mg PO DAILY [facility] Stop: 05/25/16 08:59 Last Admin: 03/29/16 09:10 Dose: 81 mg Donepezil HCl (Aricept) 10 mg PO DAILY [facility] Stop: 05/25/16 08:59 Last Admin: 03/29/16 09:10 Dose: 10 mg Guaifenesin (Robitussin) 200 mg PO Q4HR PRN PRN Reason: Cough or Congestion Stop: 05/24/16 18:46 Dextrose/Sodium Chloride (D5-0.45ns) 1,000 mls @ 60 mls/hr IV .[id number] [facility] Stop: 05/24/16 18:59 Last Admin: 03/29/16 09:09 Dose: 60 mls/hr Ipratropium [place] (Atrovent Neb 0.5mg/2.5ml) 0.5 mg IH Q2HR PRN PRN Reason: Shortness of Breath or Wheeze Stop: 05/24/16 18:46 Lorazepam (Ativan) 0.5 mg PO Q4HR PRN; Protocol PRN Reason: Agitation Stop: 05/24/16 18:43 Last Admin: 03/28/16 01:14 Dose: 0.5 mg Lorazepam (Ativan) 0.5 mg IVP NOW STA PRN Reason: Protocol Stop: 03/29/16 11:36 Megestrol Acetate (Megace) 400 mg PO BID [facility] PRN Reason: Protocol Stop: 05/28/16 16:59 Metoprolol Succinate (Toprol Xl) 50 mg PO DAILY [facility] Stop: 05/25/16 08:59 Last Admin: 03/29/16 09:11 Dose: 50 mg Mirtazapine (Remeron) 15 mg PO HS [facility] PRN Reason: Protocol Stop: 05/24/16 20:59 Last Admin: 03/28/16 21:32 Dose: 15 mg Ondansetron HCl (Zofran) 4 mg IV Q8H PRN PRN Reason: Nausea / Vomiting Stop: 05/24/16 18:46 Quetiapine Fumarate (Seroquel) 12.5 mg PO BID [facility] PRN Reason: Protocol Stop: 05/25/16 08:59 Last Admin: 03/29/16 09:11 Dose: 12.5 mg Quetiapine Fumarate (Seroquel) 12.5 mg PO HS [facility] PRN Reason: Protocol Stop: 05/25/16 20:59 Last Admin: 03/28/16 21:33 Dose: 12.5 mg General: weak, demented, thin HEENT: NC/AT, PERRLA, other (aniket temporal wasting) Neck: Supple, No JVD Lungs: CTAB Cardiovascular: RRR, Normal S1, Normal S2 Abdomen: soft non-tender, globular, positive bowel sound Extremities: excoriation Neurological: no change Internal Medicine Assmt/Plan - Assessment Assessment: aloc htn dementia debilitation electrolytes abn poor po intake - Plan Plan: willl adjust bp meds ivf seen by psych dw rn dw [facility], shes very agitated and expressive, unhappy will add megace , ensure, and ask rn to handfeed pt see orders labs noted dw dr mcgee in person
--- NOTE | 2016-03-30 02:36 | Progress Notes ---
SUBJECTIVE: Chart reviewed and the patient interviewed. Also discussed the patient's condition with the staff and reviewed records and labs. The patient is still withdrawn and anxious. The patient also is still interacting minimally with others. The patient also is guarded and is withdrawn. Otherwise, the patient is interacting minimally with others. The patient also is still guarded, withdrawn. The patient denies any thoughts of suicide. I spoke to the patient's daughter in regard to the patient's condition and the patient's daughter is asking for physical therapy. Also, the patient seems that without any stimulation, she will be sleepy and will be left alone. ASSESSMENT: The patient is still depressed and still needs close monitoring. TREATMENT PLAN: We will continue monitoring her behavior and her condition closely. Also, we will discuss with Dr. Lee the possibilities of having the patient on physical therapy. Also, the patient's daughter is still trying to get her into a psych facility that is approved by insurance for better behavior. Also, we will discontinue Seroquel and we will decrease her Remeron and we will continue to follow up. JOB# [id number]
--- NOTE | 2016-03-30 09:33 | Diagnostic Imaging Report ---
CT scan soft tissues of the neck with intravenous contrast HISTORY: Mass. Total DLP equals T9 to CTDI equals 36.8 Following administration of intravenous contrast, axial sections were obtained from the maxilla down to the level below the thoracic inlet. Exam is limited due to artifact associated with metallic fillings/dental hardware. No definite abnormalities seen in the region of the epiglottis, valleculae, or. Formed sinuses. The cervical trachea appears normal. No abnormality seen to the region of the vocal cords. There appears to be preservation of normal margins about the major muscular bundles of the neck and about the major vascular landmarks. No definite abnormal soft tissue masses. Detail is somewhat limited due to motion artifact. IMPRESSION: 1. Somewhat limited exam due to patient motion artifact and metallic artifact associated with dental fillings and hardware 2. No obvious focal abnormalities
--- NOTE | 2016-03-30 10:27 | Internal Medicine Prog Note ---
Internal Medicine Subjective - Subjective Patient seen and examined:: with staff, chart reviewed Patient is:: asleep, eyes closed, in bed, other (daughter at bedside) Patient Complaints of:: congestion, other (coughing per staff) Per staff patient is:: no adverse event, eating well (per daughter), noncompliant, confused Internal Medicine Objective - Results Result Diagrams: 03/29/16 09:03 03/29/16 09:03 Recent Labs: Laboratory Last Values WBC 6.3 Th/cmm (4.8-10.8) 03/29/16 09:03 RBC 3.98 Mil/cmm (3.80-5.20) 03/29/16 09:03 Hgb 12.9 gm/dL (11.7-16.1) 03/29/16 09:03 Hct 38.3 % (35.0-45.0) 03/29/16 09:03 MCV 96.2 fl (81-100) 03/29/16 09:03 MCH 32.4 pg (27.0-31.0) H 03/29/16 09:03 MCHC Differential 33.6 pg (28.0-36.0) 03/29/16 09:03 RDW 12.2 % (11.5-20.0) 03/29/16 09:03 Plt Count 199 Th/cmm (150-400) 03/29/16 09:03 MPV 7.2 fl 03/29/16 09:03 Neutrophils % 72.7 % (40.0-80.0) 03/29/16 09:03 Lymphocytes % 12.6 % (20.0-50.0) L 03/29/16 09:03 Monocytes % 13.5 % (2.0-10.0) H 03/29/16 09:03 Eosinophils % 0.4 % (0.0-5.0) 03/29/16 09:03 Basophils % 0.8 % (0.0-2.0) 03/29/16 09:03 Sodium 132 mEq/L (136-145) L 03/29/16 09:03 Potassium 3.9 mEq/L (3.5-5.1) 03/29/16 09:03 Chloride 100 mEq/L (98-107) 03/29/16 09:03 Carbon Dioxide 26.5 mEq/L (21.0-31.0) 03/29/16 09:03 Anion Gap 9.4 (7.0-16.0) 03/29/16 09:03 BUN 23 mg/dL (7-25) 03/29/16 09:03 Creatinine 1.1 mg/dL (0.6-1.2) 03/29/16 09:03 Est GFR ( Amer) TNP 03/29/16 09:03 Est GFR (Non-Af Amer) TNP 03/29/16 09:03 BUN/Creatinine Ratio 20.9 03/29/16 09:03 Glucose 116 mg/dL (70-105) H 03/29/16 09:03 Hemoglobin A1c % 5.9 % (4.0-6.0) 03/26/16 16:03 Calcium 8.9 mg/dL (8.6-10.3) 03/29/16 09:03 Magnesium 2.2 mg/dL (1.9-2.7) 03/26/16 16:03 Total Bilirubin 0.3 mg/dL (0.3-1.0) 03/25/16 13:45 AST 17 U/L (13-39) 03/25/16 13:45 ALT 10 U/L (7-52) 03/25/16 13:45 Alkaline Phosphatase 68 U/L (34-104) 03/25/16 13:45 Ammonia 31 umol/L (16-53) 03/26/16 16:03 Troponin I 0.01 ng/mL (0.01-0.05) 03/25/16 13:45 B-Natriuretic Peptide 289.0 pg/mL (5.0-100.0) H 03/25/16 13:45 Total Protein 6.3 gm/dL (6.0-8.3) 03/25/16 13:45 Albumin 3.2 gm/dL (3.7-5.3) L 03/25/16 13:45 Globulin 3.1 gm/dL 03/25/16 13:45 Albumin/Globulin Ratio 1.0 (1.0-1.8) 03/25/16 13:45 Vitamin B12 1496 pg/mL (211-946) H 03/26/16 16:03 Folic Acid 8.2 ng/mL (>3.0) 03/26/16 16:03 TSH 2.82 uIU/ml (0.34-5.60) 03/25/16 13:45 Urine Source CLEAN C 03/25/16 14:25 Urine Color YELLOW 03/25/16 14:25 Urine Clarity CLEAR (CLEAR) 03/25/16 14:25 Urine pH 7.0 03/25/16 14:25 Ur Specific [place] 1.020 (1.005-1.030) 03/25/16 14:25 Urine Protein NEGATIVE mg/dL (NEGATIVE) 03/25/16 14:25 Urine Glucose (UA) NEGATIVE mg/dL (NEGATIVE) 03/25/16 14:25 Urine Ketones NEGATIVE mg/dL (NEGATIVE) 03/25/16 14:25 Urine Blood NEGATIVE (NEGATIVE) 03/25/16 14:25 Urine Nitrate NEGATIVE (NEGATIVE) 03/25/16 14:25 Urine Bilirubin NEGATIVE (NEGATIVE) 03/25/16 14:25 Urine Urobilinogen 1.0 E.U./dL (0.2 - 1.0) 03/25/16 14:25 Ur Leukocyte Esterase NEGATIVE (NEGATIVE) 03/25/16 14:25 Urine RBC NONE SEEN /hpf (0-5) 03/25/16 14:25 Urine WBC NONE SEEN /hpf (0-5) 03/25/16 14:25 Ur Epithelial Cells NONE SEEN /lpf (FEW) 03/25/16 14:25 Urine Bacteria NONE SEEN /hpf (NONE SEEN) 03/25/16 14:25 RPR NONREACTIVE (NONREACTIVE) 03/25/16 13:45 - Physical Exam Vitals and I&O: Vital Signs Temp 97.6 F 03/30/16 08:11 Pulse 82 03/30/16 08:51 Resp 19 03/30/16 08:11 BP 175/78 03/30/16 08:51 Pulse Ox 92 03/30/16 08:11 Intake & Output 03/29/16 03/30/16 03/30/16 18:59 06:59 18:59 Intake Total 700 100 Balance 700 100 Intake: Oral 700 100 Other: # Voids 5 1 # Bowel Movements 2 Stool Characteristics Soft Active Medications: Current Medications Acetaminophen (Tylenol) 650 mg PO Q4HR PRN PRN Reason: Pain or Fever >101 Stop: 05/24/16 18:46 Albuterol Sulfate (Albuterol 2.5mg/3ml Neb Ud) 2.5 mg IH Q2HR PRN PRN Reason: Shortness of Breath or Wheeze Stop: 05/24/16 18:46 Aspirin (Ecotrin) 81 mg PO DAILY [facility] Stop: 05/25/16 08:59 Last Admin: 03/30/16 08:51 Dose: 81 mg Donepezil HCl (Aricept) 10 mg PO DAILY [facility] Stop: 05/25/16 08:59 Last Admin: 03/30/16 08:51 Dose: 10 mg Guaifenesin (Robitussin) 200 mg PO Q4HR PRN PRN Reason: Cough or Congestion Stop: 05/24/16 18:46 Dextrose/Sodium Chloride (D5-0.45ns) 1,000 mls @ 60 mls/hr IV .[id number] [facility] Stop: 05/24/16 18:59 Last Admin: 03/29/16 09:09 Dose: 60 mls/hr Ipratropium [place] (Atrovent Neb 0.5mg/2.5ml) 0.5 mg IH Q2HR PRN PRN Reason: Shortness of Breath or Wheeze Stop: 05/24/16 18:46 Lorazepam (Ativan) 0.5 mg PO Q4HR PRN; Protocol PRN Reason: Agitation Stop: 05/24/16 18:43 Last Admin: 03/28/16 01:14 Dose: 0.5 mg Megestrol Acetate (Megace) 400 mg PO BID [facility] PRN Reason: Protocol Stop: 05/28/16 16:59 Last Admin: 03/30/16 08:50 Dose: 400 mg Metoprolol Succinate (Toprol Xl) 50 mg PO BID [facility] Stop: 05/29/16 16:59 Mirtazapine (Remeron) 7.5 mg PO HS [facility] PRN Reason: Protocol Stop: 05/28/16 11:37 Last Admin: 03/29/16 21:39 Dose: 7.5 mg Ondansetron HCl (Zofran) 4 mg IV Q8H PRN PRN Reason: Nausea / Vomiting Stop: 05/24/16 18:46 Quetiapine Fumarate (Seroquel) 12.5 mg PO DAILY [facility] PRN Reason: Protocol Stop: 05/29/16 08:59 Last Admin: 03/30/16 08:51 Dose: 12.5 mg General: lethargic, demented HEENT: NC/AT, PERRLA Neck: Supple Lungs: CTAB Cardiovascular: RRR, Normal S1, Normal S2 Abdomen: soft non-tender, globular Extremities: excoriation, other (dermal stasis changes ble) Neurological: no change Internal Medicine Assmt/Plan - Assessment Assessment: aloc htn dementia debilitation electrolytes abn poor po intake - Plan Plan: willl adjust bp meds ivf seen by psych dw rn dw daughter at [facility], shes very agitated and expressive, unhappy will add megace , ensure, and ask rn to handfeed pt see orders labs noted jonny mcgee in person check cxr
[2016-03-30] MEDS: Ipratropium Neb 0.5 mg/2.5 mL UD IH PRN (12:15)
[2016-03-30] MEDS: Albuterol Nebulizer 2.5mg/3mL IH PRN (12:15)
[2016-03-30] MEDS: D5-0.45NS 1,000 ML IV SCH (14:32)
--- NOTE | 2016-03-31 00:46 | Progress Notes ---
SUBJECTIVE: Chart reviewed and the patient interviewed. Also discussed the patient's condition with the staff and reviewed records and labs. The patient continues to be anxious and is still somehow anxious, but is cooperative with her treatment. The patient seems to be more alert since cut down her medications. No side effects of medications. We will continue monitoring her condition and behavior and followup. JOB# [id number]
[2016-03-31 07:09] LABS: % BASOPHILS 0.5 % (0.0-2.0); % EOSINOPHILS 0.3 % (0.0-5.0); % LYMPHOCYTES 19.1 % (20.0-50.0); % MONOCYTES 14.2 % (2.0-10.0); % NEUTROPHILS 65.9 % (40.0-80.0); MEAN CELL VOLUME 94.9 fl (81-100); MEAN CORPUSCULAR HEMOGLOBIN 32.6 pg (27.0-31.0); MEAN CORPUSCULAR HGB CONC 34.4 pg (28.0-36.0); MEAN PLATELET VOLUME 7.5 fl; NEUTROPHILE ABSOLUTE 3.2 Th/cmm (1.8-8.0); PLATELET COUNT 184 Th/cmm (150-400); RED BLOOD COUNT 3.37 Mil/cmm (3.80-5.20); RED CELL DISTRIBUTION WIDTH 12.4 % (11.5-20.0)
[2016-03-31 07:14] LABS: HEMATOCRIT 31.9 % (35.0-45.0); WHITE BLOOD COUNT 4.8 Th/cmm (4.8-10.8)
[2016-03-31 07:16] LABS: ANION GAP 4.7 (7.0-16.0); BUN - UREA NITROGEN 35 mg/dL (7-25); BUN/CREATININE RATIO 29.2; CALCIUM SERUM 8.5 mg/dL (8.6-10.3); CARBON DIOXIDE 25.3 mEq/L (21.0-31.0); CHLORIDE 105 mEq/L (98-107); CREATININE - SERUM 1.2 mg/dL (0.6-1.2); GLUCOSE 98 mg/dL (70-105); SODIUM SERUM 131 mEq/L (136-145)
[2016-03-31] MEDS: Ipratropium Neb 0.5 mg/2.5 mL UD IH PRN (08:34)
[2016-03-31] MEDS: Albuterol Nebulizer 2.5mg/3mL IH PRN (08:34)
[2016-03-31] MEDS: D5-0.45NS 1,000 ML IV SCH (09:40)
--- NOTE | 2016-03-31 12:01 | Diagnostic Imaging Report ---
Portable chest x-ray HISTORY: Cough The heart appears enlarged. Episodic calcination seen in the aorta. Increased density is noted in the left lower hemithorax with obscuration of the left hemidiaphragm. Pneumonia and/or atelectasis cannot be excluded. Surgical changes noted. IMPRESSION: 1. Increased density left lower hemithorax. Pneumonia and/or atelectasis cannot be excluded 2. Cardiomegaly with atherosclerotic vascular changes 3. Surgical changes
[2016-03-31] MEDS ORDERED: D5-0.45NS 1,000 ML IV SCH (13:19)
--- NOTE | 2016-03-31 13:21 | Internal Medicine Prog Note ---
Internal Medicine Subjective - Subjective Patient seen and examined:: with staff, chart reviewed Patient is:: awake, verbal, interactive Patient Complaints of:: congestion Per staff patient is:: no adverse event, noncompliant, confused Internal Medicine Objective - Results Result Diagrams: 03/31/16 05:14 03/31/16 05:14 Recent Labs: Laboratory Last Values WBC 4.8 Th/cmm (4.8-10.8) D 03/31/16 05:14 RBC 3.37 Mil/cmm (3.80-5.20) L 03/31/16 05:14 Hgb 11.0 gm/dL (11.7-16.1) L 03/31/16 05:14 Hct 31.9 % (35.0-45.0) L D 03/31/16 05:14 MCV 94.9 fl (81-100) 03/31/16 05:14 MCH 32.6 pg (27.0-31.0) H 03/31/16 05:14 MCHC Differential 34.4 pg (28.0-36.0) 03/31/16 05:14 RDW 12.4 % (11.5-20.0) 03/31/16 05:14 Plt Count 184 Th/cmm (150-400) 03/31/16 05:14 MPV 7.5 fl 03/31/16 05:14 Neutrophils % 65.9 % (40.0-80.0) 03/31/16 05:14 Lymphocytes % 19.1 % (20.0-50.0) L 03/31/16 05:14 Monocytes % 14.2 % (2.0-10.0) H 03/31/16 05:14 Eosinophils % 0.3 % (0.0-5.0) 03/31/16 05:14 Basophils % 0.5 % (0.0-2.0) 03/31/16 05:14 Sodium 131 mEq/L (136-145) L 03/31/16 05:14 Potassium 4.0 mEq/L (3.5-5.1) 03/31/16 05:14 Chloride 105 mEq/L (98-107) 03/31/16 05:14 Carbon Dioxide 25.3 mEq/L (21.0-31.0) 03/31/16 05:14 Anion Gap 4.7 (7.0-16.0) L 03/31/16 05:14 BUN 35 mg/dL (7-25) H 03/31/16 05:14 Creatinine 1.2 mg/dL (0.6-1.2) 03/31/16 05:14 Est GFR ( Amer) TNP 03/31/16 05:14 Est GFR (Non-Af Amer) TNP 03/31/16 05:14 BUN/Creatinine Ratio 29.2 03/31/16 05:14 Glucose 98 mg/dL (70-105) 03/31/16 05:14 Hemoglobin A1c % 5.9 % (4.0-6.0) 03/26/16 16:03 Calcium 8.5 mg/dL (8.6-10.3) L 03/31/16 05:14 Magnesium 2.0 mg/dL (1.9-2.7) 03/31/16 05:14 Total Bilirubin 0.3 mg/dL (0.3-1.0) 03/25/16 13:45 AST 17 U/L (13-39) 03/25/16 13:45 ALT 10 U/L (7-52) 03/25/16 13:45 Alkaline Phosphatase 68 U/L (34-104) 03/25/16 13:45 Ammonia 31 umol/L (16-53) 03/26/16 16:03 Creatine Kinase 28 U/L (30-223) L 03/31/16 05:14 Troponin I 0.01 ng/mL (0.01-0.05) 03/25/16 13:45 B-Natriuretic Peptide 137.0 pg/mL (5.0-100.0) H 03/31/16 05:14 Total Protein 6.3 gm/dL (6.0-8.3) 03/25/16 13:45 Albumin 3.2 gm/dL (3.7-5.3) L 03/25/16 13:45 Globulin 3.1 gm/dL 03/25/16 13:45 Albumin/Globulin Ratio 1.0 (1.0-1.8) 03/25/16 13:45 Vitamin B12 1496 pg/mL (211-946) H 03/26/16 16:03 Folic Acid 8.2 ng/mL (>3.0) 03/26/16 16:03 TSH 2.82 uIU/ml (0.34-5.60) 03/25/16 13:45 Urine Source CLEAN C 03/25/16 14:25 Urine Color YELLOW 03/25/16 14:25 Urine Clarity CLEAR (CLEAR) 03/25/16 14:25 Urine pH 7.0 03/25/16 14:25 Ur Specific [place] 1.020 (1.005-1.030) 03/25/16 14:25 Urine Protein NEGATIVE mg/dL (NEGATIVE) 03/25/16 14:25 Urine Glucose (UA) NEGATIVE mg/dL (NEGATIVE) 03/25/16 14:25 Urine Ketones NEGATIVE mg/dL (NEGATIVE) 03/25/16 14:25 Urine Blood NEGATIVE (NEGATIVE) 03/25/16 14:25 Urine Nitrate NEGATIVE (NEGATIVE) 03/25/16 14:25 Urine Bilirubin NEGATIVE (NEGATIVE) 03/25/16 14:25 Urine Urobilinogen 1.0 E.U./dL (0.2 - 1.0) 03/25/16 14:25 Ur Leukocyte Esterase NEGATIVE (NEGATIVE) 03/25/16 14:25 Urine RBC NONE SEEN /hpf (0-5) 03/25/16 14:25 Urine WBC NONE SEEN /hpf (0-5) 03/25/16 14:25 Ur Epithelial Cells NONE SEEN /lpf (FEW) 03/25/16 14:25 Urine Bacteria NONE SEEN /hpf (NONE SEEN) 03/25/16 14:25 RPR NONREACTIVE (NONREACTIVE) 03/25/16 13:45 - Physical Exam Vitals and I&O: Vital Signs Temp 97.3 F 03/30/16 11:53 Pulse 78 03/31/16 09:29 Resp 18 03/31/16 08:40 BP 160/64 03/31/16 09:29 Pulse Ox 91 03/31/16 08:40 Intake & Output 03/30/16 03/31/16 03/31/16 18:59 06:59 18:59 Intake Total 826 507 6769 Balance 759 248 2090 Intake: Intake, IV Amount 1000 D5-0.45NS 1,000 ml @ 60 1000 mls/hr IV .[id number] [facility] Rx #:[id number] Oral 900 300 Other: # Voids 6 2 # Bowel Movements 1 Active Medications: Current Medications Acetaminophen (Tylenol) 650 mg PO Q4HR PRN PRN Reason: Pain or Fever >101 Stop: 05/24/16 18:46 Last Admin: 03/31/16 09:28 Dose: 650 mg Albuterol Sulfate (Albuterol 2.5mg/3ml Neb Ud) 2.5 mg IH Q2HR PRN PRN Reason: Shortness of Breath or Wheeze Stop: 05/24/16 18:46 Last Admin: 03/31/16 08:34 Dose: 2.5 mg Albuterol Sulfate (Albuterol 2.5mg/3ml Neb Ud) 2.5 mg IH QID [facility] Stop: 05/30/16 16:59 Aspirin (Ecotrin) 81 mg PO DAILY [facility] Stop: 05/25/16 08:59 Last Admin: 03/31/16 09:28 Dose: 81 mg Donepezil HCl (Aricept) 10 mg PO DAILY [facility] Stop: 05/25/16 08:59 Last Admin: 03/31/16 09:30 Dose: 10 mg Guaifenesin (Robitussin) 200 mg PO Q4HR PRN PRN Reason: Cough or Congestion Stop: 05/24/16 18:46 Cefepime HCl 1 gm/ Dextrose 50 mls @ 100 mls/hr IV Q12H [facility] Stop: 05/30/16 13:29 Ipratropium [place] (Atrovent Neb 0.5mg/2.5ml) 0.5 mg IH Q2HR PRN PRN Reason: Shortness of Breath or Wheeze Stop: 05/24/16 18:46 Last Admin: 03/31/16 08:34 Dose: 0.5 mg Ipratropium [place] (Atrovent Neb 0.5mg/2.5ml) 0.5 mg IH QID [facility] Stop: 05/30/16 16:59 Lorazepam (Ativan) 0.5 mg PO Q4HR PRN; Protocol PRN Reason: Agitation Stop: 05/24/16 18:43 Last Admin: 03/28/16 01:14 Dose: 0.5 mg Megestrol Acetate (Megace) 400 mg PO BID [facility] PRN Reason: Protocol Stop: 05/28/16 16:59 Last Admin: 03/31/16 09:28 Dose: 400 mg Metoprolol Succinate (Toprol Xl) 50 mg PO BID [facility] Stop: 05/29/16 16:59 Last Admin: 03/31/16 09:29 Dose: 50 mg Mirtazapine (Remeron) 7.5 mg PO HS [facility] PRN Reason: Protocol Stop: 05/28/16 11:37 Last Admin: 03/30/16 21:33 Dose: Not Given Ondansetron HCl (Zofran) 4 mg IV Q8H PRN PRN Reason: Nausea / Vomiting Stop: 05/24/16 18:46 Quetiapine Fumarate (Seroquel) 12.5 mg PO DAILY [facility] PRN Reason: Protocol Stop: 05/29/16 08:59 Last Admin: 03/31/16 09:28 Dose: 12.5 mg General: lethargic, demented HEENT: NC/AT, PERRLA Neck: Supple, No JVD Lungs: congested, rales, ronchi Cardiovascular: RRR, Normal S1, Normal S2 Abdomen: soft non-tender, globular, positive bowel sound Extremities: excoriation Neurological: no change, unable to follow command Internal Medicine Assmt/Plan - Assessment Assessment: fever aloc htn dementia debilitation electrolytes abn poor po intake - Plan Plan: empiric abx willl adjust bp meds ivf seen by psych dw rn dw daughter at [facility], shes very agitated and expressive, unhappy will add megace , ensure, and ask rn to handfeed pt see orders labs noted jonny mcgee in person check cxr
[2016-03-31] MEDS ORDERED: Cefepime 1 GM in Sodium Chloride 0.9% 50 ML IV SCH (13:30)
[2016-03-31] MEDS ORDERED: Cefepime 1 GM in Sodium Chloride 0.9% 100 ML IV SCH (14:59)
[2016-03-31] MEDS: Albuterol Nebulizer 2.5mg/3mL HHN SCH ×2 (15:07→21:04)
[2016-03-31] MEDS: Ipratropium Neb 0.5 mg/2.5 mL UD HHN SCH ×2 (15:07→21:04)
[2016-03-31] MEDS: Cefepime 1 GM in Sodium Chloride 0.9% 100 ML IV SCH (15:25)
[2016-04-01] MEDS: Cefepime 1 GM in Sodium Chloride 0.9% 100 ML IV SCH ×2 (02:43→16:13)
--- NOTE | 2016-04-01 04:21 | Progress Notes ---
Chart reviewed and the patient interviewed. Also discussed the patient's condition with the staff and reviewed records and labs. The patient is less anxious and she seems to be less sleepy. The patient also is interacting more with peers and with others. Also, appetite and sleep are fair. No side effects of medications except the patient is slightly sleepy. We will change Seroquel to 12.5 mg at bedtime and we will continue Remeron 7.5 mg every day. Yesterday, I discussed that with the patient's daughter and she is agreeable for that plan. JOB# [id number]
[2016-04-01 06:01] LABS: % BASOPHILS 0.3 % (0.0-2.0); % EOSINOPHILS 0.1 % (0.0-5.0); % LYMPHOCYTES 16.5 % (20.0-50.0); % MONOCYTES 10.2 % (2.0-10.0); % NEUTROPHILS 72.9 % (40.0-80.0); HEMOGLOBIN 12.2 gm/dL (11.7-16.1); MEAN CELL VOLUME 96.3 fl (81-100); MEAN CORPUSCULAR HEMOGLOBIN 32.9 pg (27.0-31.0); MEAN CORPUSCULAR HGB CONC 34.1 pg (28.0-36.0); MEAN PLATELET VOLUME 7.1 fl; NEUTROPHILE ABSOLUTE 5.2 Th/cmm (1.8-8.0); PLATELET COUNT 206 Th/cmm (150-400); RED CELL DISTRIBUTION WIDTH 12.4 % (11.5-20.0)
[2016-04-01 06:08] LABS: HEMATOCRIT 35.7 % (35.0-45.0); WHITE BLOOD COUNT 7.1 Th/cmm (4.8-10.8)
[2016-04-01 06:17] LABS: ALB/GLOB RATIO 0.8 (1.0-1.8); ALKALINE PHOSPHATASE 45 U/L (34-104); BILIRUBIN,TOTAL 0.3 mg/dL (0.3-1.0); BUN - UREA NITROGEN 27 mg/dL (7-25); CALCIUM SERUM 8.7 mg/dL (8.6-10.3); CARBON DIOXIDE 23.1 mEq/L (21.0-31.0); CHLORIDE 103 mEq/L (98-107); CREATININE - SERUM 0.9 mg/dL (0.6-1.2); GLUCOSE 99 mg/dL (70-105); MAGNESIUM 1.9 mg/dL (1.9-2.7); POTASSIUM SERUM 4.1 mEq/L (3.5-5.1); SGOT 20 U/L (13-39); SGPT/ALT 9 U/L (7-52); SODIUM SERUM 131 mEq/L (136-145)
[2016-04-01] MEDS: Albuterol Nebulizer 2.5mg/3mL HHN SCH ×4 (08:37→19:49)
[2016-04-01] MEDS: Ipratropium Neb 0.5 mg/2.5 mL UD HHN SCH ×4 (08:37→19:49)
[2016-04-01] MEDS ORDERED: D5-0.45NS 1,000 ML IV SCH (15:26)
--- NOTE | 2016-04-01 15:29 | Internal Medicine Prog Note ---
Internal Medicine Subjective - Subjective Patient seen and examined:: with staff, chart reviewed Patient is:: asleep, interactive, arousable, denies any new complaints Patient Complaints of:: congestion Per staff patient is:: no adverse event, no episodes of fall, agitated, confused Internal Medicine Objective - Results Result Diagrams: 04/01/16 05:35 04/01/16 05:35 Recent Labs: Laboratory Last Values WBC 7.1 Th/cmm (4.8-10.8) D 04/01/16 05:35 RBC 3.70 Mil/cmm (3.80-5.20) L 04/01/16 05:35 Hgb 12.2 gm/dL (11.7-16.1) 04/01/16 05:35 Hct 35.7 % (35.0-45.0) D 04/01/16 05:35 MCV 96.3 fl (81-100) 04/01/16 05:35 MCH 32.9 pg (27.0-31.0) H 04/01/16 05:35 MCHC Differential 34.1 pg (28.0-36.0) 04/01/16 05:35 RDW 12.4 % (11.5-20.0) 04/01/16 05:35 Plt Count 206 Th/cmm (150-400) 04/01/16 05:35 MPV 7.1 fl 04/01/16 05:35 Neutrophils % 72.9 % (40.0-80.0) 04/01/16 05:35 Lymphocytes % 16.5 % (20.0-50.0) L 04/01/16 05:35 Monocytes % 10.2 % (2.0-10.0) H 04/01/16 05:35 Eosinophils % 0.1 % (0.0-5.0) 04/01/16 05:35 Basophils % 0.3 % (0.0-2.0) 04/01/16 05:35 Sodium 131 mEq/L (136-145) L 04/01/16 05:35 Potassium 4.1 mEq/L (3.5-5.1) 04/01/16 05:35 Chloride 103 mEq/L (98-107) 04/01/16 05:35 Carbon Dioxide 23.1 mEq/L (21.0-31.0) 04/01/16 05:35 Anion Gap 9.0 (7.0-16.0) 04/01/16 05:35 BUN 27 mg/dL (7-25) H 04/01/16 05:35 Creatinine 0.9 mg/dL (0.6-1.2) 04/01/16 05:35 Est GFR ( Amer) TNP 04/01/16 05:35 Est GFR (Non-Af Amer) TNP 04/01/16 05:35 BUN/Creatinine Ratio 30.0 04/01/16 05:35 Glucose 99 mg/dL (70-105) 04/01/16 05:35 Hemoglobin A1c % 5.9 % (4.0-6.0) 03/26/16 16:03 Calcium 8.7 mg/dL (8.6-10.3) 04/01/16 05:35 Magnesium 1.9 mg/dL (1.9-2.7) 04/01/16 05:35 Total Bilirubin 0.3 mg/dL (0.3-1.0) 04/01/16 05:35 AST 20 U/L (13-39) 04/01/16 05:35 ALT 9 U/L (7-52) 04/01/16 05:35 Alkaline Phosphatase 45 U/L (34-104) 04/01/16 05:35 Ammonia 18 umol/L (16-53) 04/01/16 05:35 Creatine Kinase 28 U/L (30-223) L 03/31/16 05:14 Troponin I 0.01 ng/mL (0.01-0.05) 03/25/16 13:45 B-Natriuretic Peptide 137.0 pg/mL (5.0-100.0) H 03/31/16 05:14 Total Protein 5.9 gm/dL (6.0-8.3) L 04/01/16 05:35 Albumin 2.7 gm/dL (3.7-5.3) L 04/01/16 05:35 Globulin 3.2 gm/dL 04/01/16 05:35 Albumin/Globulin Ratio 0.8 (1.0-1.8) L 04/01/16 05:35 Vitamin B12 1496 pg/mL (211-946) H 03/26/16 16:03 Folic Acid 8.2 ng/mL (>3.0) 03/26/16 16:03 TSH 2.82 uIU/ml (0.34-5.60) 03/25/16 13:45 Urine Source CLEAN C 03/25/16 14:25 Urine Color YELLOW 03/25/16 14:25 Urine Clarity CLEAR (CLEAR) 03/25/16 14:25 Urine pH 7.0 03/25/16 14:25 Ur Specific [place] 1.020 (1.005-1.030) 03/25/16 14:25 Urine Protein NEGATIVE mg/dL (NEGATIVE) 03/25/16 14:25 Urine Glucose (UA) NEGATIVE mg/dL (NEGATIVE) 03/25/16 14:25 Urine Ketones NEGATIVE mg/dL (NEGATIVE) 03/25/16 14:25 Urine Blood NEGATIVE (NEGATIVE) 03/25/16 14:25 Urine Nitrate NEGATIVE (NEGATIVE) 03/25/16 14:25 Urine Bilirubin NEGATIVE (NEGATIVE) 03/25/16 14:25 Urine Urobilinogen 1.0 E.U./dL (0.2 - 1.0) 03/25/16 14:25 Ur Leukocyte Esterase NEGATIVE (NEGATIVE) 03/25/16 14:25 Urine RBC NONE SEEN /hpf (0-5) 03/25/16 14:25 Urine WBC NONE SEEN /hpf (0-5) 03/25/16 14:25 Ur Epithelial Cells NONE SEEN /lpf (FEW) 03/25/16 14:25 Urine Bacteria NONE SEEN /hpf (NONE SEEN) 03/25/16 14:25 RPR NONREACTIVE (NONREACTIVE) 03/25/16 13:45 - Physical Exam Vitals and I&O: Vital Signs Temp 98.2 F 04/01/16 12:00 Pulse 69 04/01/16 12:00 Resp 18 04/01/16 12:00 BP 125/55 04/01/16 12:00 Pulse Ox 95 04/01/16 12:00 Intake & Output 03/31/16 04/01/16 04/01/16 18:59 06:59 18:59 Intake Total 1220 30 Balance 1220 30 Intake: Intake, IV Amount 1100 Cefepime 1 gm In Sodium 100 Chloride 0.9% 100 ml @ 200 mls/hr IV Q12H [facility] Rx #:[id number] D5-0.45NS 1,000 ml @ 60 1000 mls/hr IV .[id number] [facility] Rx #:[id number] Oral 120 30 Other: # Voids 2 Active Medications: Current Medications Acetaminophen (Tylenol) 650 mg PO Q4HR PRN PRN Reason: Pain or Fever >101 Stop: 05/24/16 18:46 Last Admin: 03/31/16 09:28 Dose: 650 mg Albuterol Sulfate (Albuterol 2.5mg/3ml Neb Ud) 2.5 mg IH Q2HR PRN PRN Reason: Shortness of Breath or Wheeze Stop: 05/24/16 18:46 Last Admin: 03/31/16 08:34 Dose: 2.5 mg Albuterol Sulfate (Albuterol 2.5mg/3ml Neb Ud) 2.5 mg HHN QIDRT [facility] Stop: 05/30/16 14:59 Last Admin: 04/01/16 11:56 Dose: 2.5 mg Aspirin (Ecotrin) 81 mg PO DAILY [facility] Stop: 05/25/16 08:59 Last Admin: 04/01/16 08:51 Dose: 81 mg Donepezil HCl (Aricept) 10 mg PO DAILY [facility] Stop: 05/25/16 08:59 Last Admin: 04/01/16 08:51 Dose: 10 mg Guaifenesin (Robitussin) 200 mg PO Q4HR PRN PRN Reason: Cough or Congestion Stop: 05/24/16 18:46 Last Admin: 03/31/16 15:31 Dose: 200 mg Cefepime HCl 1 gm/ Sodium (Chloride) 100 mls @ 200 mls/hr IV Q12H [facility] Stop: 05/30/16 14:59 Last Admin: 04/01/16 02:43 Dose: 200 mls/hr Ipratropium [place] (Atrovent Neb 0.5mg/2.5ml) 0.5 mg IH Q2HR PRN PRN Reason: Shortness of Breath or Wheeze Stop: 05/24/16 18:46 Last Admin: 03/31/16 08:34 Dose: 0.5 mg Ipratropium [place] (Atrovent Neb 0.5mg/2.5ml) 0.5 mg HHN QIDRT [facility] Stop: 05/30/16 14:59 Last Admin: 04/01/16 11:57 Dose: 0.5 mg Lactobacillus Rhamnosus (Culturelle) 1 each PO TID [facility] Stop: 05/31/16 13:59 Lorazepam (Ativan) 0.5 mg PO Q4HR PRN; Protocol PRN Reason: Agitation Stop: 05/24/16 18:43 Last Admin: 03/28/16 01:14 Dose: 0.5 mg Megestrol Acetate (Megace) 400 mg PO BID [facility] PRN Reason: Protocol Stop: 05/28/16 16:59 Last Admin: 04/01/16 08:51 Dose: 400 mg Metoprolol Succinate (Toprol Xl) 50 mg PO BID [facility] Stop: 05/29/16 16:59 Last Admin: 04/01/16 08:51 Dose: 50 mg Mirtazapine (Remeron) 7.5 mg PO HS [facility] PRN Reason: Protocol Stop: 05/28/16 11:37 Last Admin: 03/31/16 22:53 Dose: 7.5 mg Ondansetron HCl (Zofran) 4 mg IV Q8H PRN PRN Reason: Nausea / Vomiting Stop: 05/24/16 18:46 Quetiapine Fumarate (Seroquel) 12.5 mg PO HS [facility] PRN Reason: Protocol Stop: 05/30/16 20:59 Last Admin: 03/31/16 22:54 Dose: 12.5 mg General: lethargic, demented, cachectic HEENT: NC/AT, PERRLA Neck: Supple, No JVD Lungs: congested, rales Cardiovascular: RRR, Normal S1, Normal S2 Abdomen: soft non-tender, globular, positive bowel sound Extremities: excoriation Neurological: no change, unable to follow command Internal Medicine Assmt/Plan - Assessment Assessment: fever aloc htn dementia debilitation electrolytes abn poor po intake - Plan Plan: empiric abx willl adjust bp meds ivf seen by psych dw rn dw daughter at [facility], shes very agitated and expressive, unhappy will add megace , ensure, and ask rn to handfeed pt see orders labs noted dw dr mcgee in person check cxr dw son dr us, hospitalist in [facility], jonny plan of care , appropriate for snf for continued care and rehab daughter moe veliz w staff, unhappy
[2016-04-01] MEDS: Lactobacillus Rhamnosus 10 Billion CFU Capsule PO SCH ×2 (16:14→22:12)
[2016-04-02] MEDS: Cefepime 1 GM in Sodium Chloride 0.9% 100 ML IV SCH ×2 (03:35→14:13)
[2016-04-02] MEDS: Albuterol Nebulizer 2.5mg/3mL HHN SCH ×4 (08:35→19:16)
[2016-04-02] MEDS: Ipratropium Neb 0.5 mg/2.5 mL UD HHN SCH ×4 (08:35→19:16)
[2016-04-02] MEDS: Lactobacillus Rhamnosus 10 Billion CFU Capsule PO SCH ×3 (09:08→21:17)
--- NOTE | 2016-04-02 09:54 | Diagnostic Imaging Report ---
CHEST X-RAY: AP view INDICATION: Pneumonia COMPARISON: 03/30/2016 FINDINGS: The patient is rotated. Chronic lung changes are seen with right basal infiltrates and small right effusion. Mild cardiomegaly is noted with atherosclerosis. IMPRESSION: Right basal infiltrates and small right effusion. Cardiomegaly and atherosclerotic vascular disease.
--- NOTE | 2016-04-03 01:38 | Progress Notes ---
SUBJECTIVE: Chart reviewed and the patient interviewed. Also discussed the patient's condition with the staff and reviewed records and labs. Also discussed the patient's condition with the director of the place where the patient lives. The patient is calm and is cooperative. She also is in fair mood and she is not sedated and interacting appropriately with others. The patient also is not agitated. Also, no side effects of Seroquel or Remeron. ASSESSMENT: The patient is calmer. TREATMENT PLAN: We will continue Seroquel and Remeron same dose. Also, residential case manager had some concerns about her condition, but prior to her admission to the hospital and about her agitation. We will continue to work on adjusting psychotropic medications ____. The patient seems to be doing fairly at this time and we will continue to follow up. JOB# [id number]
--- NOTE | 2016-04-03 01:47 | Discharge Summary ---
CHIEF COMPLAINT: Change in mental status, generalized weakness. FINAL DIAGNOSES: Possible right-sided pneumonia, small right pleural effusion, generalized weakness, decompensation of psychiatric illness, hypertension, dementia, debility, mild anemia, hyponatremia, renal insufficiency, protein calorie malnutrition. HISTORY: This is an 89-year-old female with a history of dementia, was admitted from [facility] secondary to generalized weakness. The patient apparently was agitated and throwing things and hitting the staff. The patient was transferred for further care and treatment. PHYSICAL EXAMINATION: VITAL SIGNS: Blood pressure 133/63, respirations 18, pulse 78, temperature 97.7. GENERAL: Elderly female. NECK: Bilateral temporal wasting. LUNGS: Decreased breath sounds with few rhonchi. HEART: Regular rate and rhythm with systolic ejection murmur. ABDOMEN: Soft, nontender, positive bowel sounds, ____ sternotomy scar. EXTREMITIES: No clubbing, cyanosis. Positive excoriation. NEUROLOGIC: Limited, moving all 4 extremities. HOSPITAL COURSE: The patient's case was discussed with the patient's daughter, Sheri who is very involved with the patient's care. The patient's sodium was low on admission, BUN was also elevated. She was clinically dehydrated. The patient was also seen by Dr. Johansen for Psychiatry. Her psychotropic medications were adjusted. His diagnosis was unspecified psychosis. Case was discussed a great time with the patient's daughter, who shows concern about the lesion in her neck. A CT was done, which showed possible metabolic artifact with dental filling, no obvious tumor noted. The patient had episode of fever of 100.3. Blood culture was sent. Sputum was sent. Chest x-ray showing ____ in the right side of the lung. The patient was started on IV antibiotic for empiric treatment. The patient requiring half-way regimen. Hence the recommendation is for the patient to get to a half-way facility as opposed to [facility]. This was discussed with the patient's son as well as ____ who is our hospitalist in the [facility] and family is agreeable with the half-way placement. CONDITION ON DISCHARGE: Fair. OVERALL PROGNOSIS: Poor. DISCHARGE INSTRUCTIONS: The patient to continue IV antibiotic, but maximum time, 5 more days; the patient will need physical therapy as well. JOB# [id number]
[2016-04-03] MEDS: Cefepime 1 GM in Sodium Chloride 0.9% 100 ML IV SCH ×2 (04:02→14:15)
[2016-04-03] MEDS: Albuterol Nebulizer 2.5mg/3mL HHN SCH ×3 (07:31→15:05)
[2016-04-03] MEDS: Ipratropium Neb 0.5 mg/2.5 mL UD HHN SCH ×3 (07:31→15:05)
[2016-04-03] MEDS: Lactobacillus Rhamnosus 10 Billion CFU Capsule PO SCH ×2 (08:17→14:14)
--- NOTE | 2016-04-03 12:17 | Internal Medicine Prog Note ---
Internal Medicine Subjective - Subjective Patient seen and examined:: with staff, chart reviewed Patient is:: awake, verbal, interactive Per staff patient is:: confused (placement pending) Internal Medicine Objective - Results Result Diagrams: 04/01/16 05:35 04/01/16 05:35 Recent Labs: Laboratory Last Values WBC 7.1 Th/cmm (4.8-10.8) D 04/01/16 05:35 RBC 3.70 Mil/cmm (3.80-5.20) L 04/01/16 05:35 Hgb 12.2 gm/dL (11.7-16.1) 04/01/16 05:35 Hct 35.7 % (35.0-45.0) D 04/01/16 05:35 MCV 96.3 fl (81-100) 04/01/16 05:35 MCH 32.9 pg (27.0-31.0) H 04/01/16 05:35 MCHC Differential 34.1 pg (28.0-36.0) 04/01/16 05:35 RDW 12.4 % (11.5-20.0) 04/01/16 05:35 Plt Count 206 Th/cmm (150-400) 04/01/16 05:35 MPV 7.1 fl 04/01/16 05:35 Neutrophils % 72.9 % (40.0-80.0) 04/01/16 05:35 Lymphocytes % 16.5 % (20.0-50.0) L 04/01/16 05:35 Monocytes % 10.2 % (2.0-10.0) H 04/01/16 05:35 Eosinophils % 0.1 % (0.0-5.0) 04/01/16 05:35 Basophils % 0.3 % (0.0-2.0) 04/01/16 05:35 Sodium 131 mEq/L (136-145) L 04/01/16 05:35 Potassium 4.1 mEq/L (3.5-5.1) 04/01/16 05:35 Chloride 103 mEq/L (98-107) 04/01/16 05:35 Carbon Dioxide 23.1 mEq/L (21.0-31.0) 04/01/16 05:35 Anion Gap 9.0 (7.0-16.0) 04/01/16 05:35 BUN 27 mg/dL (7-25) H 04/01/16 05:35 Creatinine 0.9 mg/dL (0.6-1.2) 04/01/16 05:35 Est GFR ( Amer) TNP 04/01/16 05:35 Est GFR (Non-Af Amer) TNP 04/01/16 05:35 BUN/Creatinine Ratio 30.0 04/01/16 05:35 Glucose 99 mg/dL (70-105) 04/01/16 05:35 Hemoglobin A1c % 5.9 % (4.0-6.0) 03/26/16 16:03 Calcium 8.7 mg/dL (8.6-10.3) 04/01/16 05:35 Magnesium 1.9 mg/dL (1.9-2.7) 04/01/16 05:35 Total Bilirubin 0.3 mg/dL (0.3-1.0) 04/01/16 05:35 AST 20 U/L (13-39) 04/01/16 05:35 ALT 9 U/L (7-52) 04/01/16 05:35 Alkaline Phosphatase 45 U/L (34-104) 04/01/16 05:35 Ammonia 18 umol/L (16-53) 04/01/16 05:35 Creatine Kinase 28 U/L (30-223) L 03/31/16 05:14 Troponin I 0.01 ng/mL (0.01-0.05) 03/25/16 13:45 B-Natriuretic Peptide 137.0 pg/mL (5.0-100.0) H 03/31/16 05:14 Total Protein 5.9 gm/dL (6.0-8.3) L 04/01/16 05:35 Albumin 2.7 gm/dL (3.7-5.3) L 04/01/16 05:35 Globulin 3.2 gm/dL 04/01/16 05:35 Albumin/Globulin Ratio 0.8 (1.0-1.8) L 04/01/16 05:35 Vitamin B12 1496 pg/mL (211-946) H 03/26/16 16:03 Folic Acid 8.2 ng/mL (>3.0) 03/26/16 16:03 TSH 2.82 uIU/ml (0.34-5.60) 03/25/16 13:45 Urine Source CLEAN C 03/25/16 14:25 Urine Color YELLOW 03/25/16 14:25 Urine Clarity CLEAR (CLEAR) 03/25/16 14:25 Urine pH 7.0 03/25/16 14:25 Ur Specific [place] 1.020 (1.005-1.030) 03/25/16 14:25 Urine Protein NEGATIVE mg/dL (NEGATIVE) 03/25/16 14:25 Urine Glucose (UA) NEGATIVE mg/dL (NEGATIVE) 03/25/16 14:25 Urine Ketones NEGATIVE mg/dL (NEGATIVE) 03/25/16 14:25 Urine Blood NEGATIVE (NEGATIVE) 03/25/16 14:25 Urine Nitrate NEGATIVE (NEGATIVE) 03/25/16 14:25 Urine Bilirubin NEGATIVE (NEGATIVE) 03/25/16 14:25 Urine Urobilinogen 1.0 E.U./dL (0.2 - 1.0) 03/25/16 14:25 Ur Leukocyte Esterase NEGATIVE (NEGATIVE) 03/25/16 14:25 Urine RBC NONE SEEN /hpf (0-5) 03/25/16 14:25 Urine WBC NONE SEEN /hpf (0-5) 03/25/16 14:25 Ur Epithelial Cells NONE SEEN /lpf (FEW) 03/25/16 14:25 Urine Bacteria NONE SEEN /hpf (NONE SEEN) 03/25/16 14:25 RPR NONREACTIVE (NONREACTIVE) 03/25/16 13:45 - Physical Exam Vitals and I&O: Vital Signs Temp 98.3 F 04/03/16 08:00 Pulse 74 04/03/16 11:11 Resp 18 04/03/16 11:11 BP 144/74 04/03/16 08:17 Pulse Ox 94 04/03/16 11:11 Intake & Output 04/02/16 04/03/16 04/03/16 18:59 06:59 18:59 Intake Total 900 400 Balance 900 400 Intake: Intake, IV Amount 100 100 Cefepime 1 gm In Sodium 100 100 Chloride 0.9% 100 ml @ 200 mls/hr IV Q12H CECILIO Rx #:[id number] Oral 800 300 Other: # Voids 3 # Bowel Movements 0 0 Active Medications: Current Medications Acetaminophen (Tylenol) 650 mg PO Q4HR PRN PRN Reason: Pain or Fever >101 Stop: 05/24/16 18:46 Last Admin: 03/31/16 09:28 Dose: 650 mg Albuterol Sulfate (Albuterol 2.5mg/3ml Neb Ud) 2.5 mg IH Q2HR PRN PRN Reason: Shortness of Breath or Wheeze Stop: 05/24/16 18:46 Last Admin: 03/31/16 08:34 Dose: 2.5 mg Albuterol Sulfate (Albuterol 2.5mg/3ml Neb Ud) 2.5 mg HHN QIDRT [facility] Stop: 05/30/16 14:59 Last Admin: 04/03/16 11:11 Dose: 2.5 mg Aspirin (Ecotrin) 81 mg PO DAILY [facility] Stop: 05/25/16 08:59 Last Admin: 04/03/16 08:17 Dose: 81 mg Donepezil HCl (Aricept) 10 mg PO DAILY [facility] Stop: 05/25/16 08:59 Last Admin: 04/03/16 08:17 Dose: 10 mg Guaifenesin (Robitussin) 200 mg PO Q4HR PRN PRN Reason: Cough or Congestion Stop: 05/24/16 18:46 Last Admin: 03/31/16 15:31 Dose: 200 mg Cefepime HCl 1 gm/ Sodium (Chloride) 100 mls @ 200 mls/hr IV Q12H [facility] Stop: 05/30/16 14:59 Last Infusion: 04/03/16 04:32 Dose: Infused Ipratropium [place] (Atrovent Neb 0.5mg/2.5ml) 0.5 mg IH Q2HR PRN PRN Reason: Shortness of Breath or Wheeze Stop: 05/24/16 18:46 Last Admin: 03/31/16 08:34 Dose: 0.5 mg Ipratropium [place] (Atrovent Neb 0.5mg/2.5ml) 0.5 mg HHN QIDRT [facility] Stop: 05/30/16 14:59 Last Admin: 04/03/16 11:11 Dose: 0.5 mg Lactobacillus Rhamnosus (Culturelle) 1 each PO TID [facility] Stop: 05/31/16 13:59 Last Admin: 04/03/16 08:17 Dose: 1 each Lorazepam (Ativan) 0.5 mg PO Q4HR PRN; Protocol PRN Reason: Agitation Stop: 05/24/16 18:43 Last Admin: 04/02/16 21:18 Dose: 0.5 mg Megestrol Acetate (Megace) 400 mg PO BID CECILIO PRN Reason: Protocol Stop: 05/28/16 16:59 Last Admin: 04/03/16 08:17 Dose: 400 mg Metoprolol Succinate (Toprol Xl) 50 mg PO BID CECILIO Stop: 05/29/16 16:59 Last Admin: 04/03/16 08:17 Dose: 50 mg Mirtazapine (Remeron) 7.5 mg PO HS CECILIO PRN Reason: Protocol Stop: 05/28/16 11:37 Last Admin: 04/02/16 21:17 Dose: 7.5 mg Ondansetron HCl (Zofran) 4 mg IV Q8H PRN PRN Reason: Nausea / Vomiting Stop: 05/24/16 18:46 Quetiapine Fumarate (Seroquel) 12.5 mg PO HS CECILIO PRN Reason: Protocol Stop: 05/30/16 20:59 Last Admin: 04/02/16 21:17 Dose: 12.5 mg General: demented HEENT: NC/AT, PERRLA Neck: Supple, No JVD Lungs: congested Cardiovascular: RRR, Normal S1, Normal S2 Abdomen: soft non-tender, globular Extremities: excoriation Neurological: no change Internal Medicine Assmt/Plan - Assessment Assessment: fever better aloc better htn dementia debilitation electrolytes abn poor po intake - Plan Plan: empiric abx willl adjust bp meds ivf seen by psych dw rn dw daughter at [facility], shes very agitated and expressive, unhappy will add megace , ensure, and ask rn to handfeed pt see orders labs noted dw dr mcgee in person check cxr dw son dr us, hospitalist in [facility], jonny plan of care , appropriate for snf for continued care and rehab daughter moe veliz w staff, unhappy 2-9 placement to snf pending
== END 2016-04-03 19:30 | DRG 193 ==
LOC: ER 12:31 → MSI 17:04
PROVIDERS: ADMIT Internal Medicine; ATTEND Internal Medicine
DX: J18.9 Pneumonia, unspecified organism (principal); E43 Unspecified severe protein-calorie malnutrition; E86.0 Dehydration; F03.90 Unspecified dementia, unspecified severity, without behavioral disturbance, psychotic disturbance, mood disturbance, and anxiety; J44.9 Chronic obstructive pulmonary disease, unspecified; D64.9 Anemia, unspecified; E87.1 Hypo-osmolality and hyponatremia; J90 Pleural effusion, not elsewhere classified; Z68.1 Body mass index [BMI] 19.9 or less, adult; Z95.1 Presence of aortocoronary bypass graft; R41.82 Altered mental status, unspecified; I10 Essential (primary) hypertension; F29 Unspecified psychosis not due to a substance or known physiological condition; I25.10 Atherosclerotic heart disease of native coronary artery without angina pectoris; M41.9 Scoliosis, unspecified; R53.1 Weakness; N28.9 Disorder of kidney and ureter, unspecified; Z91.14 Patient's other noncompliance with medication regimen
CPT/HCPCS: 36415-UA; 70491-TC; 71010-TC; 76536-TC; 80048-TC; 80053-TC; 81001-TC; 82140-TC; 82550-TC; 82607-90; 82746-90; 83036-90; 83735-TC; 83880-TC; 84443-TC; 84484-TC; 85025-TC; 86592-TC; 87070; 90779; 93005; 94640; 94760; 97530; J0692; J2060; J7121; J7613; Q9967; X3904; Z7610